=== PATIENT | male | born 1945 | race Caucasian/White ===

== ENCOUNTER 2018-11-16 09:54 | Outpatient (CLI) | payer MEDICARE, OTHER ==
--- NOTE | 2018-11-16 13:29 | XRAY Report ---
Reason: BILATERAL SHOULDER PAIN STIFFNESS Procedure Date: 11/16/2018 Accession Number: [id number] / [id number] Procedure: XR - Shoulder 3 View BILAT CPT Code: FULL RESULT: Bilateral Shoulder Radiography EXAM DATE: 11/16/2018 09:58 AM. CLINICAL HISTORY: Bilateral shoulder pain stiffness. COMPARISON: None. TECHNIQUE: 3 views each. FINDINGS: Right: Bones: Normal. No fracture or bone lesion. Joints: Moderate degenerative changes of the AC joint. The glenohumeral joint and acromioclavicular joint are normally located. Soft tissues: The visualized hemithorax is unremarkable. No soft tissue swelling. Left: Bones: Normal. No fracture or bone lesion. Joints: Moderate degenerative changes of the AC joint. AC joint and glenohumeral joint are normally located. Soft tissues: The visualized hemithorax is unremarkable. No soft tissue swelling. IMPRESSION: Bilateral AC joint degenerative changes. RADIA
== END 2018-11-16 09:55 | disposition home or self-care (01) ==
LOC: DI 09:54
PROVIDERS: ATTEND Family Medicine
DX: M19.012 Primary osteoarthritis, left shoulder (principal); M19.011 Primary osteoarthritis, right shoulder; M65.811 Other synovitis and tenosynovitis, right shoulder; M65.812 Other synovitis and tenosynovitis, left shoulder

== ENCOUNTER 2018-12-09 07:14 | Outpatient (CLI) | payer MEDICARE, OTHER ==
--- NOTE | 2018-12-11 08:32 | MRI Report ---
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 CLINICAL HISTORY: Worsening left shoulder pain. Bursitis. COMPARISON: SHOULDER 3 VIEW BILAT 11/16/2018 9:58 AM. TECHNIQUE: Multiplanar, multisequence T1-weighted and fluid-sensitive sequences of the shoulder without contrast. Other: None. FINDINGS: Acromioclavicular Region: The acromion is type II. Mild acromioclavicular joint osteoarthritis. Small AC joint fluid. Spurring 4 mm inferior aspect AC joint. The coracoacromial and coracoclavicular ligaments are intact. Small fluid collection subacromial subdeltoid bursa. Glenohumeral Region: No subluxation. No effusion or loose bodies. The articular cartilage is unremarkable. The glenohumeral ligaments and joint capsule are unremarkable. Bone Marrow: No fracture, marrow edema or bone lesions. Labrum: Anterior labrum tear. Diminutive posterior superior glenoid labrum with intermediate signal. Musculature/Rotator Cuff: Undersurface intermediate signal 1.5 cm in AP dimension and 1.3 cm in transverse dimension distal posterior infraspinatus tendon consistent with tendinosis. Severe thickening and intermediate signal of the supraspinatus tendon consistent with supraspinatus tendinitis. Possible small partial bursal surface linear tear 9 mm in length distal supraspinatus tendon (image 6 series 701). Biceps Tendon: The long head of the biceps tendon and biceps gordon are intact. Other: The subcutaneous tissues are unremarkable. IMPRESSION: 1. Anterior labrum tear. 2. Negative for rotator cuff tear. 3. Supraspinatus tendinitis. 4. Small fluid collection subacromial subdeltoid bursa. 5. Mild osteoarthritis acromioclavicular joint. 6. Infraspinatus tendinosis. RADIA
== END 2018-12-09 07:15 | disposition home or self-care (01) ==
LOC: DI 07:14
PROVIDERS: ATTEND Family Medicine
DX: M19.012 Primary osteoarthritis, left shoulder (principal); S43.492A Other sprain of left shoulder joint, initial encounter; M75.82 Other shoulder lesions, left shoulder

== ENCOUNTER 2019-01-15 15:02 | Emergency (ER) | payer MEDICARE, OTHER ==
--- NOTE | 2019-01-15 15:51 | ED Physician Documentation ---
PD HPI HEENT - Stated complaint Stated Complaint: NOSE BLEED - Chief complaint Chief Complaint: Heent - History obtained from History obtained from: Patient - History of Present Illness Timing - onset: Today Timing - duration: Hours Timing - details: Abrupt onset, Waxing and waning Location: Nose (intermittent right nosebleed since this morning. No injury. no URI.) Associated symptoms: No: Fever, Congestion, Swollen nodes Similar symptoms before: Has not had sx before Recently seen: Not recently seen Review of Systems Constitutional: denies: Fever Nose: reports: Epistaxis. denies: Rhinorrhea / runny nose, Congestion Throat: denies: Sore throat Respiratory: denies: Cough Neurologic: denies: Generalized weakness, Near syncope Endocrine: denies: Easy bruising / bleeding PD PAST MEDICAL HISTORY - Past Medical History Cardiovascular: Hypertension, High cholesterol Respiratory: None Endocrine/Autoimmune: Type 2 diabetes GI: Ulcers : None HEENT: Other Psych: None Musculoskeletal: Osteoarthritis Derm: Herpes zoster Other Past Medical History: bilat cataracts - Past Surgical History Past Surgical History: Yes General: Colonoscopy, EGD Ortho: Other HEENT: Tonsil/Adenoidectomy - Allergies Allergies/Adverse Reactions: Allergies Allergy/AdvReac Type Severity Reaction Status Date / Time No Known Drug Allergies Allergy Verified 01/15/19 15:07 - Social History Does the pt smoke?: No Smoking Status: Former smoker Does the pt drink ETOH?: No Does the pt have substance abuse?: No - Immunizations Immunizations are current?: Yes - POLST Patient has POLST: No PD ED PE NORMAL - Vitals Vital signs reviewed: Yes - General General: Alert and oriented X 3, Well developed/nourished - HEENT HEENT: Ears normal, Moist mucous membranes, Pharynx benign, Other (right anterior medial nasal wall with point of inflammation and minimal bleeding. Cotton ball for few minutes and bleeding stopped. Cautery was then done without problems. ) - Neck Neck: Supple, no meningeal sign, No adenopathy - Cardiac Cardiac: RRR, No murmur - Respiratory Respiratory: Clear bilaterally - Derm Derm: Normal color, Warm and dry Results - Vitals Vitals: Vital Signs - 24 hr 01/15/19 01/15/19 15:03 15:07 Temperature 36.6 C Heart Rate 92 81 Respiratory 18 14 Rate Blood Pressure 146/93 H 158/94 H O2 Saturation 95 91 L Oxygen O2 Source Room air Procedures - Epistaxis Site: Right Preparation: Lidocaine, Other (TXA) Treatment: Silver Nitrate, Packing inserted Other: Observed - no bleeding, Pt tolerated well PD MEDICAL DECISION MAKING - ED course Complexity details: considered differential, d/w patient Departure - Departure Disposition: 01 Home, Self Care Clinical Impression: Anterior epistaxis Condition: Stable Record reviewed to determine appropriate education?: Yes Instructions: ED Nosebleed Follow-Up: Ha Gaytan DO [Primary Care Provider] - Comments: Leave the foam packing in the nostril until tomorrow. At that point you can m oisten up the foam with just some tap water and then pull it out gently. If you do have any recurrent bleeding, pinch the nostril with the nose clamp that we gave you and leave it in place for 15 or 20 minutes and see if the bleeding stops. If it does not then return back here. I would expect recurrent bleeding once the packing is out tomorrow as that should be time enough for the cautery/sealant to have settled in and keep it from bleeding again. Discharge Date/Time: 01/15/19 16:39
[2019-01-15] MEDS ORDERED: TRANEXAMIC ACID 1,000 MG/10 ML VIAL NAS STA (16:10)
[2019-01-15 16:30] VITALS: BP 158/94
== END 2019-01-15 16:39 | disposition home or self-care (01) ==
LOC: ED 15:02
DX: R04.0 Epistaxis (principal); I10 Essential (primary) hypertension; E11.9 Type 2 diabetes mellitus without complications; Z87.891 Personal history of nicotine dependence
CPT/HCPCS: 30901; 99282; 99283

== ENCOUNTER 2019-06-23 19:46 | Emergency (ER) | payer MEDICARE, OTHER ==
--- NOTE | 2019-06-23 20:08 | ED Physician Documentation ---
PD HPI HEENT - Stated complaint Stated Complaint: NOSE BLEED - Chief complaint Chief Complaint: Heent - History obtained from History obtained from: Patient - History of Present Illness Timing - onset: Enter time (18:00), Today Timing - details: Abrupt onset Pain level max: 0 Pain level now: 0 Location: Nose Improves: Nothing Similar symptoms before: Other (right epistaxis T+R from this ED 5 months ago) Recently seen: Not recently seen - Additional information Additional information: c/o spontaneous right nare epistaxis x 2.5 hours. does not take blood-thinning medication. Review of Systems Nose: reports: Epistaxis. denies: Rhinorrhea / runny nose, Congestion, Sinus pressure / pain Endocrine: denies: Easy bruising / bleeding PD PAST MEDICAL HISTORY - Past Medical History Cardiovascular: Hypertension, High cholesterol Respiratory: None Endocrine/Autoimmune: Type 2 diabetes GI: Ulcers : None HEENT: Other Psych: None Musculoskeletal: Osteoarthritis Derm: Herpes zoster - Past Surgical History Past Surgical History: Yes General: Colonoscopy, EGD Ortho: Other HEENT: Tonsil/Adenoidectomy - Allergies Allergies/Adverse Reactions: Allergies Allergy/AdvReac Type Severity Reaction Status Date / Time No Known Drug Allergies Allergy Verified 06/23/19 19:52 - Social History Does the pt smoke?: No Smoking Status: Never smoker Does the pt drink ETOH?: No Does the pt have substance abuse?: No - Immunizations Immunizations are current?: Yes - POLST Patient has POLST: No PD ED PE NORMAL - Vitals Vital signs reviewed: Yes - General General: Alert and oriented X 3, No acute distress, Well developed/nourished - HEENT HEENT: Moist mucous membranes, Pharynx benign PD ED PE EXPANDED - HEENT HEENT: Right nares epsitaxis Results - Vitals Vitals: Vital Signs - 24 hr 06/23/19 06/23/19 19:52 21:24 Temperature 36.3 C L Heart Rate 83 87 Respiratory 18 18 Rate Blood Pressure 170/98 H 166/106 H O2 Saturation 93 93 Oxygen O2 Source Room air Procedures - Epistaxis Site: Right Preparation: Clots removed (solitary small clot), Afrin, Lidocaine Treatment: Silver Nitrate, Other (upon removing the cotton ball (with lidocaine and afrin), I did not see any active bleeding nor potential source of bleeding, but eventually I was able to locate a solitary raised vessel far anterior (less than 0.5 cm from rim of nare) right nare; upon application of silver nitrate, this began bleeding, further raising suspicion that this has been the bleeding source. I reapplied lidocaine and then two more applications of silver nitrate with good hemostasis achieved) Other: Observed - no bleeding, Pt tolerated well PD MEDICAL DECISION MAKING - ED course Complexity details: reviewed old records, re-evaluated patient, considered differential, d/w patient Departure - Departure Disposition: 01 Home, Self Care Clinical Impression: Epistaxis Condition: Good Instructions: ED Nosebleed Follow-Up: Ha Gaytan DO [Primary Care Provider] - Discharge Date/Time: 06/23/19 21:26
[2019-06-23] MEDS ORDERED: LIDOCAINE VISCOUS 2% 15 ML UDC MM STA (20:18)
[2019-06-23] MEDS ORDERED: OXYMETAZOLINE HCL 100 SPRAYS BOTTLE NAS STA (20:18)
[2019-06-23 21:26] VITALS: BP 166/106
== END 2019-06-23 21:26 | disposition home or self-care (01) ==
LOC: ED 19:46
DX: R04.0 Epistaxis (principal); I10 Essential (primary) hypertension; E11.9 Type 2 diabetes mellitus without complications
CPT/HCPCS: 30901; 99282; A9270

== ENCOUNTER 2021-01-23 16:11 | Outpatient (CLI) | payer MEDICARE, OTHER | END 2021-01-23 16:12 | disposition critical access hospital (66) | LOC: EMS 16:11 | DX: L76.22 Postprocedural hemorrhage of skin and subcutaneous tissue following other procedure (principal) | CPT/HCPCS: A0425; A0429 ==

== ENCOUNTER 2021-01-23 16:25 | Emergency (ER) | payer MEDICARE, OTHER ==
[2021-01-23 17:18] LABS: BASOPHILS # (AUTO) 0.1 10^3/uL (0.0-0.1); BASOPHILS % (AUTO) 0.8 %; EOSINOPHILS # (AUTO) 0.4 10^3/uL (0.0-0.7); EOSINOPHILS % (AUTO) 3.3 %; HCT - HEMATOCRIT 29.4 % (42.0-52.0); HGB - HEMOGLOBIN 9.7 g/dL (14.0-18.0); LYMPHOCYTES # (AUTO) 1.3 10^3/uL (1.5-3.5); LYMPHOCYTES % (AUTO) 12.4 %; MEAN CORPUSCULAR HEMOGLOBIN 29.9 pg (27.0-31.0); MEAN CORPUSCULAR VOLUME 90.7 fL (80.0-94.0); MEAN PLATELET VOLUME 9.4 fL (7.4-11.4); MONOCYTES % (AUTO) 9.4 %; NEUTROPHILS # (AUTO) 7.8 10^3/uL (1.5-6.6); NEUTROPHILS % (AUTO) 72.9 %; PLT - PLATELET COUNT 282 10^3/uL (130-450); RED BLOOD COUNT 3.24 10^6/uL (4.70-6.10); RED CELL DISTRIBUTION WIDTH 14.4 % (12.0-15.0); WHITE BLOOD COUNT 10.6 x10^3/uL (4.8-10.8)
[2021-01-23 17:27] LABS: ALBUMIN 3.1 g/dL (3.2-5.5); BILIRUBIN,TOTAL 2.1 mg/dL (0.2-1.0); CALCIUM 7.8 mg/dL (8.5-10.3); POTASSIUM 3.8 mmol/L (3.5-5.0); TOTAL PROTEIN 6.2 g/dL (6.7-8.2)
[2021-01-23] MEDS ORDERED: IOVERSOL 320 100 ML VIAL IVP ONE ×2 (17:42→17:59)
--- NOTE | 2021-01-23 17:42 | ED Physician Documentation ---
History of Present Illness - Stated complaint Stated Complaint: POST OP BLEEDING - Chief complaint Chief Complaint: Abd Pain - Additonal information Additional information: 75-year-old male presents the emergency department for evaluation of postoperative bleeding. He underwent an extensive and complex hernia repair at [facility] on 13 January. He had been wearing his abdominal binder as ordered. He does report that after the hernia repair he did have extensive bruising on his abdomen. This afternoon when he woke up from a nap in his chair he noted that his Close were stained with blood and he was bleeding from the lower portion of his incision. He does report that this a.m. he did have pink-tinged urine. He denies melena or hematochezia. He has had no vomiting. No fevers. No dysuria. Past medical history is most significant for hypertension and diabetes for which she is compliant with his insulin regimen. Review of Systems Constitutional: denies: Fever, Chills Eyes: reports: Reviewed and negative Ears: reports: Reviewed and negative Nose: reports: Reviewed and negative Throat: reports: Reviewed and negative Cardiac: reports: Reviewed and negative Respiratory: reports: Reviewed and negative GI: reports: Abdominal Pain, Reviewed and negative. denies: Nausea, Vomiting, Diarrhea, Hematemesis, Bloody / black stool : reports: Hematuria, Reviewed and negative. denies: Dysuria, Frequency Skin: reports: Other (Extensive bruising on the abdomen.). denies: Rash, Lesions Musculoskeletal: denies: Neck pain, Back pain PD PAST MEDICAL HISTORY - Past Medical History Cardiovascular: Hypertension, High cholesterol Respiratory: None Endocrine/Autoimmune: Type 2 diabetes GI: Ulcers : None HEENT: Other Psych: None Musculoskeletal: Osteoarthritis Derm: Herpes zoster - Past Surgical History Past Surgical History: Yes General: Colonoscopy, EGD Ortho: Other HEENT: Tonsil/Adenoidectomy - Present Medications Home Medications: Ambulatory Orders Medication Instructions Recorded Confirmed Dulaglutide [Trulicity] 0.75 mg SQ Q7D 10/13/20 10/13/20 Insulin Aspart [NovoLOG] 14 unit SUBQ TIDWM 10/13/20 10/13/20 Insulin Detemir [Levemir Flextouch] 40 units SUBQ BID 10/13/20 10/13/20 Losartan [Cozaar] 50 mg PO DAILY 10/13/20 10/13/20 Multivitamin 1 each PO 10/13/20 Rosuvastatin Calcium [Crestor] 40 mg PO QDBREAKFAST 10/13/20 10/13/20 - Allergies Allergies/Adverse Reactions: Allergies Allergy/AdvReac Type Severity Reaction Status Date / Time No Known Drug Allergies Allergy Verified 01/23/21 16:35 - Social History Does the pt smoke?: No Smoking Status: Never smoker Does the pt drink ETOH?: No Does the pt have substance abuse?: No - Immunizations Immunizations are current?: Yes - POLST Patient has POLST: No PD ED PE EXPANDED - General General: Alert, No acute distress - Cardiac Cardiac: Regular Rate, Radial strong equal, Pedal strong equal, Cap refill < 2 sec - Abdomen Abdomen: Normal Bowel sounds, Tender to palpation, Surgical scars (Long midline Vertical incision is well approximated. The lower portion above the symphysis pubis however has blood draining from it. It begins to bleed more freely when the patient sits upright.), Other (Significant bruising on the entirety of the abdomen in various stages of healing from light yellow to dark purple.) - Neuro Neuro: Alert and Oriented X 3, CNII-XII intact Results - Vitals Vitals: Vital Signs - 24 hr 01/23/21 01/23/21 01/23/21 16:25 18:30 21:00 Temperature 37.4 C Heart Rate 84 79 79 Respiratory 20 16 94 H Rate Blood Pressure 156/62 H 139/73 H 131/67 H O2 Saturation 96 95 20 L Oxygen O2 Source Room air - Labs Labs: Laboratory Tests 01/23/21 01/23/21 01/23/21 17:10 17:10 17:10 WBC 10.6 RBC 3.24 L Hgb 9.7 L Hct 29.4 L MCV 90.7 MCH 29.9 MCHC 33.0 RDW 14.4 Plt Count 282 MPV 9.4 Neut # (Auto) 7.8 H Lymph # (Auto) 1.3 L Woodruff # (Auto) 1.0 Eos # (Auto) 0.4 Baso # (Auto) 0.1 Absolute Nucleated RBC 0.00 Nucleated RBC % 0.0 PT INR Sodium 134 L Potassium 3.8 Chloride 100 L Carbon Dioxide 26 Anion Gap 8.0 BUN 14 Creatinine 1.0 Estimated GFR (MDRD) 73 L Glucose 197 H Lactic Acid 1.0 Calcium 7.8 L Total Bilirubin 2.1 H AST 26 ALT 36 Alkaline Phosphatase 58 Total Protein 6.2 L Albumin 3.1 L Globulin 3.1 Albumin/Globulin Ratio 1.0 Lipase 38 01/23/21 17:35 WBC RBC Hgb Hct MCV MCH MCHC RDW Plt Count MPV Neut # (Auto) Lymph # (Auto) Woodruff # (Auto) Eos # (Auto) Baso # (Auto) Absolute Nucleated RBC Nucleated RBC % PT 16.6 H INR 1.5 H Sodium Potassium Chloride Carbon Dioxide Anion Gap BUN Creatinine Estimated GFR (MDRD) Glucose Lactic Acid Calcium Total Bilirubin AST ALT Alkaline Phosphatase Total Protein Albumin Globulin Albumin/Globulin Ratio Lipase - Rads (name of study) CT abd Radiology: Final report received (Large lobulated slightly hyper attenuated heterogeneous subcutaneous collection within the ventral abdominal wall measuring 22 cm x 6 cm x 17 cm consistent with a hematoma. Aneurysmal dilation of the infrarenal abdominal aorta 3.4 cm. No intraperitoneal free fluid. ) PD MEDICAL DECISION MAKING - ED course Complexity details: reviewed results, re-evaluated patient, considered differential, d/w patient, d/w family ED course: This is a 75-year-old male that presents the emergency department for evaluation of bleeding from the incision after his recent extensive hernia repair. There is significant amount of bruising within the abdomen but today the patient noted that he began to have bleeding from the lower portion of the incision. A CT scan does show a very large hematoma measuring 22 x 17 cm. This is within the subcutaneous tissue of the ventral abdominal wall. He does have active dark brown bleeding from the lower portion of the incision when he sits upright. 2049: I have spoken with Dr. Elliott the surgeon who ss on-call and also performed his operation at [facility] on the he does agree that the patient should be evaluated for further treatment of his hematoma and possible drainage. He does agree to accept the patient in transfer to [facility]. Appropriate COBRA paperwork completed. Patient is hemodynamically stable and has required no IV pain medications nor is he tachycardic will be sent via BLS. Departure - Departure Disposition: 02 Transfer Acute Care Hosp Clinical Impression: Abdominal wall hematoma Qualifiers: Encounter type: initial encounter Qualified Code(s): S30.1XXA - Contusion of abdominal wall, initial encounter
[2021-01-23 17:50] LABS: INR 1.5 (0.8-1.2); PT - PROTHROMBIN TIME 16.6 secs (9.9-12.6)
--- NOTE | 2021-01-23 18:49 | CT Report ---
PROCEDURE: Abdomen/Pelvis W INDICATIONS: recent surgery hernia repair; bleeding CONTRAST: IV CONTRAST: Optiray 320 ml: 100 PO CONTRAST: *NO PO CONTRAST TECHNIQUE: After the administration of intravenous contrast, 5 mm thick sections acquired from the diaphragms to the symphysis. 5 mm thick coronal and sagittal reformats were acquired. For radiation dose reducti on, the following was used: automated exposure control, adjustment of mA and/or kV according to shanique ent size. COMPARISON: None. FINDINGS: Image quality: Excellent. ABDOMEN: Lung bases: There is dependent atelectasis and scarring the lung bases. Heart size is normal. Solid organs: Liver and spleen are normal in size and enhancement. Gallbladder is surgically absent . Biliary system is non dilated. Pancreas enhances normally. No adrenal nodules. Kidneys demonstr ate no hydronephrosis. There is a right renal cortical cyst noted posteriorly. Peritoneum and bowel: Bowel loops demonstrate normal wall thickness and caliber. No intraperitoneal free fluid or air. Nodes and vessels: No retroperitoneal or mesenteric adenopathy by size criteria. There is an infrare nal saccular abdominal aortic aneurysm, with the aorta measuring up to 3.4 cm in anteroposterior dime nsion. The common, external, and internal iliac arteries are normal in caliber. There is scattered ca lcified atherosclerotic plaque. Miscellaneous: There is a large lobulated slightly hyperattenuating heterogeneous subcutaneous colle ction within the ventral abdominal wall measuring approximately 21.7 x 5.8 x 17.1 cm consistent with a hematoma. No definite evidence of active arterial extravasation. There is an associated ventral abd ominal surgical incision site. Small foci of subcutaneous cutaneous gas are also noted on the right a spect of the collection. There is a small fat-containing left paracentral ventral abdominal hernia po sterior to inferior aspect of the hematoma collection. PELVIS: Genitourinary: Bladder wall thickness is normal. Miscellaneous: No inguinal hernias or adenopathy. Bones: No suspicious bony lesions. No vertebral body compression fractures. IMPRESSION: 1. Large lobulated subcutaneous hyperdense heterogeneous collection consistent with a hematoma demons trated in the ventral abdominal wall. No definite evidence of active arterial extravasation identifie d. 2. No intraperitoneal free fluid. 3. Aneurysmal dilatation of the infrarenal abdominal aorta. Reviewed by: Camilo Taylor MD on 01/23/2021 6:47 PM PDT Approved by: Camilo Taylor MD on 01/23/2021 6:47 PM PDT Station ID: [id number]
[2021-01-23 21:01] VITALS: BP 131/67
[2021-01-23] MEDS ORDERED: SODIUM CHLORIDE 0.9% 1,000 ML IV STA (21:04)
== END 2021-01-23 21:48 | disposition short-term general hospital (02) ==
LOC: EDUNIT# → ED 16:25 → SUPCPDRO 16:25 → ED 21:48
DX: L76.32 Postprocedural hematoma of skin and subcutaneous tissue following other procedure (principal); I10 Essential (primary) hypertension; E11.9 Type 2 diabetes mellitus without complications; Z79.4 Long term (current) use of insulin
CPT/HCPCS: 36415; 74177; 80053; 83605; 83690; 85025; 85610; 96360; 99283; 99285; Q9967

== ENCOUNTER 2021-01-23 21:50 | Outpatient (CLI) | payer MEDICARE, OTHER | END 2021-01-23 21:51 | disposition short-term general hospital (02) | LOC: EMS 21:50 | PROVIDERS: ATTEND Registered Nurse | DX: L76.32 Postprocedural hematoma of skin and subcutaneous tissue following other procedure (principal); E11.9 Type 2 diabetes mellitus without complications; I10 Essential (primary) hypertension | CPT/HCPCS: A0425; A0428 ==

== ENCOUNTER 2022-05-23 07:36 | Outpatient (CLI) | payer MEDICARE, OTHER | END 2022-05-23 07:37 | disposition critical access hospital (66) | LOC: EMS 07:36 | DX: R42 Dizziness and giddiness (principal); R03.0 Elevated blood-pressure reading, without diagnosis of hypertension | CPT/HCPCS: A0425; A0429 ==

== ENCOUNTER 2022-05-23 07:47 | Emergency (ER) | payer MEDICARE, OTHER ==
--- NOTE | 2022-05-23 07:58 | ED Physician Documentation ---
PD HPI HEENT - Stated complaint Stated Complaint: VERTIGO/NEAR SYNCOPE - History obtained from History obtained from: Patient PD PAST MEDICAL HISTORY - Past Medical History Cardiovascular: Hypertension, High cholesterol Respiratory: None Endocrine/Autoimmune: Type 2 diabetes GI: Ulcers : None HEENT: Other Psych: None Musculoskeletal: Osteoarthritis Derm: Herpes zoster - Past Surgical History Past Surgical History: Yes General: Colonoscopy, EGD Ortho: Other HEENT: Tonsil/Adenoidectomy - Present Medications Home Medications: Ambulatory Orders Medication Instructions Recorded Confirmed Dulaglutide [Trulicity] 0.75 mg SQ Q7D 10/13/20 01/23/21 Insulin Aspart [NovoLOG] 14 unit SUBQ TIDWM 10/13/20 01/23/21 Insulin Detemir [Levemir Flextouch] 40 units SUBQ BID 10/13/20 01/23/21 Losartan [Cozaar] 50 mg PO DAILY 10/13/20 01/23/21 Multivitamin 1 each PO DAILY 10/13/20 01/23/21 Rosuvastatin Calcium [Crestor] 40 mg PO QDBREAKFAST 10/13/20 01/23/21 - Allergies Allergies/Adverse Reactions: Allergies Allergy/AdvReac Type Severity Reaction Status Date / Time No Known Drug Allergies Allergy Verified 01/23/21 16:35 - Social History Does the pt smoke?: No Smoking Status: Never smoker Does the pt drink ETOH?: No Does the pt have substance abuse?: No - Immunizations Immunizations are current?: Yes - POLST Patient has POLST: No Results - Vitals Vitals: Oxygen O2 Source Room air
[2022-05-23] MEDS ORDERED: ENALAPRILAT 1.25 MG/ML VIAL IVP STA (08:40)
[2022-05-23] MEDS ORDERED: NITROGLYCERIN SL 0.4 MG TABLET SL STA (08:41)
--- NOTE | 2022-05-23 08:42 | ED Physician Documentation ---
PD HPI SYNCOPE - Stated complaint Stated Complaint: VERTIGO/NEAR SYNCOPE - Chief complaint Chief Complaint: Neuro - History obtained from History obtained from: Patient - History of Present Illness Witnessed: Unwitnessed Timing - onset: How many hours ago (1) Duration: Minutes Preceding symptoms: Light headed (He felt lightheaded and off balance and near syncope when got up from bed. He felt better sitting down. No change with head movement. Denies vertigo. He was concerned of low blood pressure so took it but was at 200s. Continue to with lightheadedness when standing up. Called EMS. No headache.), Generalized weakness. No: Headache, Chest pain, Dyspnea Associated symptoms: Nausea / vomiting, Other (no vertigo nor symptoms with head movement. He took BP and it was very elevated.). No: Headache, Chest pain, Palpitations, Dyspnea, Abdominal pain Contributing factors: Just stood up. No: Recent med change, Decreased PO intake, Noxious stimulae Injury occurred: No: Fell, Head injury, Neck injury Similar symptoms before: No diagnosis (milder similar in the past. Today was more prominent and persisted with standing up again. No symptoms with head movement/head position.) Recently seen: Not recently seen Review of Systems Constitutional: denies: Fever Eyes: denies: Loss of vision, Decreased vision Nose: denies: Rhinorrhea / runny nose, Congestion Throat: denies: Sore throat Respiratory: denies: Cough Musculoskeletal: denies: Neck pain, Back pain Neurologic: reports: Near syncope. denies: Focal weakness, Numbness, Difficulty speaking, Altered mental status, Headache PD PAST MEDICAL HISTORY - Past Medical History Cardiovascular: Hypertension (but has not been on oral med for year or more. ), High cholesterol Respiratory: None Endocrine/Autoimmune: Type 2 diabetes GI: Ulcers : None HEENT: Other Psych: None Musculoskeletal: Osteoarthritis Derm: Herpes zoster - Past Surgical History Past Surgical History: Yes General: Colonoscopy, EGD Ortho: Other HEENT: Tonsil/Adenoidectomy - Present Medications Home Medications: Ambulatory Orders Medication Instructions Recorded Confirmed Dulaglutide [Trulicity] 0.75 mg SQ Q7D 10/13/20 01/23/21 Insulin Aspart [NovoLOG] 14 unit SUBQ TIDWM 10/13/20 01/23/21 Insulin Detemir [Levemir Flextouch] 40 units SUBQ BID 10/13/20 01/23/21 Losartan [Cozaar] 50 mg PO DAILY 10/13/20 01/23/21 Multivitamin 1 each PO DAILY 10/13/20 01/23/21 Rosuvastatin Calcium [Crestor] 40 mg PO QDBREAKFAST 10/13/20 01/23/21 Losartan [Cozaar] 50 mg PO DAILY 30 Days #30 tablet 05/23/22 - Allergies Allergies/Adverse Reactions: Allergies Allergy/AdvReac Type Severity Reaction Status Date / Time No Known Drug Allergies Allergy Verified 01/23/21 16:35 - Social History Does the pt smoke?: No Smoking Status: Never smoker Does the pt drink ETOH?: No Does the pt have substance abuse?: No - Immunizations Immunizations are current?: Yes - POLST Patient has POLST: No PD ED PE NORMAL - Vitals Vital signs reviewed: Yes - General General: Alert and oriented X 3, No acute distress, Well developed/nourished - HEENT HEENT: PERRL, EOMI (no nystagmus), Moist mucous membranes, Pharynx benign - Neck Neck: Supple, no meningeal sign, No adenopathy - Cardiac Cardiac: RRR, No murmur - Respiratory Respiratory: Clear bilaterally - Abdomen Abdomen: Soft, Non tender - Derm Derm: Normal color, Warm and dry - Extremities Extremities: Normal ROM s pain, No edema, No calf tenderness / cord - Neuro Neuro: Alert and oriented X 3, 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, No motor deficit, No sensory def icit, Normal speech, Other Eye Opening: Spontaneous Motor: Obeys Commands Verbal: Oriented GCS Score: 15 Results - Vitals Vitals: Vital Signs - 24 hr 05/23/22 05/23/22 05/23/22 07:56 09:59 10:23 Temperature 37.2 C Heart Rate 75 72 Heart Rate [ 73 Sitting] Heart Rate [ 80 Standing] Heart Rate [ 70 Supine] Respiratory 11 L 16 Rate Blood Pressure 229/129 H 164/93 H Blood Pressure 154/95 H [Sitting] Blood Pressure 165/98 H [Standing] Blood Pressure 162/94 H [Supine] O2 Saturation 99 95 Oxygen O2 Source Room air - EKG (time done) 07:45 Rate: Rate (enter#) (73) Rhythm: NSR Intervals: RBBB Ischemia: Normal ST segments, Non specific changes. No: ST elevation c/w ischemia Compare to prior EKG: Old EKG unavailable (he is not aware of recent ECG. no known RBBB per se. ) - Labs Labs: Laboratory Tests 05/23/22 05/23/22 05/23/22 08:50 08:50 08:50 WBC 9.2 RBC 5.15 Hgb 15.1 Hct 45.7 MCV 88.7 MCH 29.3 MCHC 33.0 RDW 14.2 Plt Count 189 MPV 10.0 Neut # (Auto) 6.3 Lymph # (Auto) 1.6 [place] # (Auto) 0.9 Eos # (Auto) 0.3 Baso # (Auto) 0.1 Absolute Nucleated RBC 0.00 Nucleated RBC % 0.0 Sodium 140 Potassium 3.9 Chloride 108 Carbon Dioxide 24 Anion Gap 8.0 BUN 11 Creatinine 0.8 Estimated GFR (MDRD) 94 Glucose 136 H Calcium 9.0 Magnesium 1.9 Total Bilirubin 1.0 AST 19 ALT 15 Alkaline Phosphatase 60 Troponin I High Sens 15.7 B-Natriuretic Peptide Total Protein 6.8 Albumin 3.5 Globulin 3.3 Albumin/Globulin Ratio 1.1 Lipase 34 05/23/22 08:50 WBC RBC Hgb Hct MCV MCH MCHC RDW Plt Count MPV Neut # (Auto) Lymph # (Auto) [place] # (Auto) Eos # (Auto) Baso # (Auto) Absolute Nucleated RBC Nucleated RBC % Sodium Potassium Chloride Carbon Dioxide Anion Gap BUN Creatinine Estimated GFR (MDRD) Glucose Calcium Magnesium Total Bilirubin AST ALT Alkaline Phosphatase Troponin I High Sens B-Natriuretic Peptide 99 Total Protein Albumin Globulin Albumin/Globulin Ratio Lipase PD MEDICAL DECISION MAKING - ED course Complexity details: reviewed results (no acute labs abnormal. Symptoms were ostural lightheaded/near syncope. Did not have focal weakness, headache, vertigo. ), re-evaluated patient (he feels better with BP down (treated with NTG x 1 and enalaprit). ), considered differential, d/w patient, d/w family (spouse) Departure - Departure Disposition: 01 Home, Self Care Clinical Impression: Postural lightheadedness, Elevated blood pressure reading Condition: Stable Record reviewed to determine appropriate education?: Yes Follow-Up: Ha Gaytan DO [Primary Care Provider] - Prescriptions: Losartan [Cozaar] 50 mg PO DAILY 30 Days #30 tablet Comments: Your blood count and kidney function electrolytes are good. Your troponin is normal without any signs of heart failure or heart attack. Your EKG is Fairly normal with an electrical abnormality called a right bundle branch block. This may have been present for a while. See if Dr. Gaytan is aware of it on any prior EKGs. I do not have any comparisons available in my system here.. Your blood pressure was quite elevated and actually did not have a drop with standing so I do not think a low blood pressure or drop in blood pressure was causing your symptoms. You may be having symptoms related to the very elevated blood pressure. I would anticipate this improving through the day. Return or follow-up with your primary if persistent symptoms and particularly if worsening. Otherwise we will start you on a blood pressure medicine. This looks like when you had been prescribed in the past. Losartan 50 mg daily. See how your blood pressure does on this over the next week or so. Follow-up with Dr. Gaytan. They may to need to adjust at higher if your blood pressure still high. I sent your prescription to [facility] pharmacy. Return if other symptoms develop along with this. Discharge Date/Time: 05/23/22 11:07
[2022-05-23 08:57] LABS: BASOPHILS # (AUTO) 0.1 10^3/uL (0.0-0.1); EOSINOPHILS # (AUTO) 0.3 10^3/uL (0.0-0.7); EOSINOPHILS % (AUTO) 3.4 %; HCT - HEMATOCRIT 45.7 % (42.0-52.0); HGB - HEMOGLOBIN 15.1 g/dL (14.0-18.0); LYMPHOCYTES # (AUTO) 1.6 10^3/uL (1.5-3.5); LYMPHOCYTES % (AUTO) 16.8 %; MEAN CORPUSCULAR HEMOGLOBIN 29.3 pg (27.0-31.0); MEAN CORPUSCULAR VOLUME 88.7 fL (80.0-94.0); MONOCYTES # (AUTO) 0.9 10^3/uL (0.0-1.0); MONOCYTES % (AUTO) 10.2 %; NEUTROPHILS # (AUTO) 6.3 10^3/uL (1.5-6.6); NEUTROPHILS % (AUTO) 68.1 %; PLT - PLATELET COUNT 189 10^3/uL (130-450); RED BLOOD COUNT 5.15 10^6/uL (4.70-6.10); RED CELL DISTRIBUTION WIDTH 14.2 % (12.0-15.0); WHITE BLOOD COUNT 9.2 x10^3/uL (4.8-10.8)
[2022-05-23 09:12] LABS: ALBUMIN 3.5 g/dL (3.2-5.5); ALBUMIN/GLOBULIN RATIO 1.1 (1.0-2.2); CREATININE 0.8 mg/dL (0.6-1.2); MAGNESIUM 1.9 mg/dL (1.7-2.8); POTASSIUM 3.9 mmol/L (3.5-5.0); TOTAL PROTEIN 6.8 g/dL (6.7-8.2)
[2022-05-23 10:24] VITALS: BP 162/94
== END 2022-05-23 11:07 | disposition home or self-care (01) ==
LOC: EDBD → EDUNIT# → ED 07:47
DX: R42 Dizziness and giddiness (principal); I10 Essential (primary) hypertension
CPT/HCPCS: 36415; 80053; 83690; 83735; 83880; 84484; 85025; 93005; 96374; 99283; 99284; A9270

== ENCOUNTER 2022-10-07 13:23 | Outpatient (CLI) | payer OTHER, MEDICARE | END 2022-10-07 13:24 | disposition critical access hospital (66) | LOC: EMS 13:23 | DX: M54.2 Cervicalgia (principal); M54.6 Pain in thoracic spine; R07.89 Other chest pain; V43.53XA Car driver injured in collision with pick-up truck in traffic accident, initial encounter; Y92.413 State road as the place of occurrence of the external cause | CPT/HCPCS: A0425; A0429 ==

== ENCOUNTER 2022-10-07 13:29 | Emergency (ER) | payer OTHER, MEDICARE ==
[2022-10-07] MEDS ORDERED: ONDANSETRON 4 MG/2 ML VIAL IVP STA (13:44)
[2022-10-07] MEDS ORDERED: MORPHINE 10 MG/ML VIAL IVP STA (13:44)
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
[2022-10-07 13:51] LABS: BASOPHILS # (AUTO) 0.1 10^3/uL (0.0-0.1); BASOPHILS % (AUTO) 0.8 %; EOSINOPHILS # (AUTO) 0.3 10^3/uL (0.0-0.7); EOSINOPHILS % (AUTO) 2.7 %; HCT - HEMATOCRIT 48.8 % (42.0-52.0); HGB - HEMOGLOBIN 16.3 g/dL (14.0-18.0); LYMPHOCYTES # (AUTO) 3.1 10^3/uL (1.5-3.5); LYMPHOCYTES % (AUTO) 27.9 %; MEAN CORPUSCULAR HEMOGLOBIN 29.7 pg (27.0-31.0); MEAN CORPUSCULAR HGB CONC 33.4 g/dL (32.0-36.0); MEAN CORPUSCULAR VOLUME 89.1 fL (80.0-94.0); MEAN PLATELET VOLUME 10.4 fL (7.4-11.4); MONOCYTES # (AUTO) 1.1 10^3/uL (0.0-1.0); MONOCYTES % (AUTO) 10.1 %; NEUTROPHILS # (AUTO) 6.3 10^3/uL (1.5-6.6); NEUTROPHILS % (AUTO) 57.4 %; PLT - PLATELET COUNT 178 10^3/uL (130-450); RED BLOOD COUNT 5.48 10^6/uL (4.70-6.10); RED CELL DISTRIBUTION WIDTH 14.2 % (12.0-15.0)
[2022-10-07] MEDS ORDERED: iohexoL-300 100 ML VIAL ONE (13:54)
[2022-10-07 13:58] LABS: INR 1.1 (0.8-1.2); PT - PROTHROMBIN TIME 12.7 secs (9.9-12.6)
[2022-10-07 14:05] LABS: ALBUMIN/GLOBULIN RATIO 1.3 (1.0-2.2); ALKALINE PHOSPHATASE 60 IU/L (42-121); ALT ALANINE AMINOTRANSFERASE 22 IU/L (10-60); AST ASPARTATE AMINOTRANSFERASE 26 IU/L (10-42); BILIRUBIN,TOTAL 1.2 mg/dL (0.2-1.0); BUN - BLOOD UREA NITROGEN 12 mg/dL (6-20); CALCIUM 9.1 mg/dL (8.5-10.3); CARBON DIOXIDE - CO2 25 mmol/L (21-32); CHLORIDE 105 mmol/L (101-111); CREATININE 0.8 mg/dL (0.6-1.2); ETOH - ETHANOL < 5.0 mg/dL; GFR - MDRD 94 (>89); GLUCOSE 275 mg/dL (70-100); LIPASE 37 U/L (22-51); POTASSIUM 3.7 mmol/L (3.5-5.0); SODIUM 138 mmol/L (135-145); TOTAL PROTEIN 7.1 g/dL (6.7-8.2)
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
[2022-10-07] MEDS ORDERED: METOPROLOL 5 MG/5 ML VIAL IVP STA (16:48)
--- NOTE | 2022-10-07 17:07 | XRAY Report ---
PROCEDURE: Hand 3 View RT INDICATIONS: pain TECHNIQUE: 3 views of the hand(s) acquired. COMPARISON: None FINDINGS: Bones: No fractures or dislocations. Osteoarthritic changes are noted throughout right hand and wri st joints most notably throughout interphalangeal joints. No suspicious bony lesions. Soft tissues: No suspicious soft tissue calcifications. IMPRESSION: Osteoarthritic changes in right hand and wrist joints. No acute fracture or dislocation. No gross sof t tissue abnormalities. Reviewed by: Twan Houser MD on 10/07/2022 5:06 PM PDT Approved by: Twan Houser MD on 10/07/2022 5:06 PM PDT Station ID: [id number]
[2022-10-07 18:08] VITALS: BP 188/111
[2022-10-08] MEDS ORDERED: iohexoL-300 100 ML VIAL IVP ONE (10:12)
== END 2022-10-07 19:44 | disposition short-term general hospital (02) ==
LOC: EDUNIT# → ED 13:29
DX: S22.41XA Multiple fractures of ribs, right side, initial encounter for closed fracture (principal); S42.012A Anterior displaced fracture of sternal end of left clavicle, initial encounter for closed fracture; V89.2XXA Person injured in unspecified motor-vehicle accident, traffic, initial encounter; Y93.89 Activity, other specified; Y92.413 State road as the place of occurrence of the external cause; I10 Essential (primary) hypertension; R91.8 Other nonspecific abnormal finding of lung field; Z20.822 Contact with and (suspected) exposure to COVID-19
CPT/HCPCS: 36415; 70450; 71045; 71260; 72125; 73000; 73130; 74177; 80053; 80320; 83690; 85025; 85610; 86850; 86900; 86901; 87635; 93005; 96374; 96375; 99285; Q9967

== ENCOUNTER 2023-02-01 15:32 | Outpatient (CLI) | payer MEDICARE, OTHER | END 2023-02-01 23:59 | disposition critical access hospital (66) | LOC: EMS 15:32 | DX: R07.81 Pleurodynia (principal); W18.30XA Fall on same level, unspecified, initial encounter | CPT/HCPCS: A0425; A0429 ==

== ENCOUNTER 2023-02-01 16:09 | Inpatient (IN) | payer MEDICARE, OTHER ==
[2023-02-01] MEDS ORDERED: HYDROmorphone 1 MG/ML CARPUJECT IM STA (16:33)
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
--- NOTE | 2023-02-01 16:48 | XRAY Report ---
PROCEDURE: Chest 1 View X-Ray INDICATIONS: chest pain TECHNIQUE: One view of the chest was acquired. COMPARISON: 10/07/2022. FINDINGS: Surgical changes and devices: None. Lungs and pleura: No pleural effusions or pneumothorax. Lungs are clear. Mediastinum: Mediastinal contours appear normal. Heart size is normal. Bones and chest wall: No suspicious bony lesions. Overlying soft tissues appear unremarkable. IMPRESSION: No acute cardiopulmonary process. Reviewed by: Twan Houser MD on 02/01/2023 4:47 PM PDT Approved by: Twan Houser MD on 02/01/2023 4:47 PM PDT Station ID: [id number]
--- NOTE | 2023-02-01 17:52 | CT Report ---
PROCEDURE: CHEST WO INDICATIONS: left rib pain after fall TECHNIQUE: Noncontrast 1mm axial images were acquired from the pulmonary apices to the posterior costophrenic an gles. Axial 5 mm soft tissue kernel reconstructions were performed as well as 8 mm axial MIP and cor onal and sagittal 5 mm reformations. For radiation dose reduction, the following was used: automate d exposure control, adjustment of mA and/or kV according to patient size. COMPARISON: FINDINGS: Image quality: Excellent. Lungs and pleura: No consolidation. No pleural effusions. No pneumothorax. No suspicious pulmonary n odules which require follow up. Mediastinum: Heart size is normal. No pericardial effusion. No large vessel abnormality. No mediastin al adenopathy by size criteria. Chest wall and lower neck: Thyroid is unremarkable. Nondisplaced left sixth and seventh rib fractures . No axillary or supraclavicular adenopathy by size. Bones: Healed right fifth, sixth, and seventh rib fractures. Healed left clavicle fracture. Upper Abdomen: Unremarkable. IMPRESSION: 1. Nondisplaced left sixth and seventh rib fractures. 2. Healed right rib fractures and healed left clavicle fracture. Reviewed by: Kole Tovar on 02/01/2023 5:51 PM PDT Approved by: Kole Tovar on 02/01/2023 5:51 PM PDT Station ID: [id number]
--- NOTE | 2023-02-01 18:27 | CT Report ---
PROCEDURE: ABDOMEN/PELVIS WO INDICATIONS: left flank pain after fall TECHNIQUE: A CT scan of the abdomen and pelvis was performed without the use of intravenous contrast. Images we re recorded and evaluated at appropriate window settings. Reformats: coronal and sagittal. For radiat ion dose reduction, the following was used: automated exposure control, adjustment of mA and/or kV ac cording to patient size. COMPARISON: 10/07/2022 FINDINGS: Image quality: Excellent. Lung bases and heart: Dictated separately Liver: Liver contour is grossly normal. No significant perihepatic fluid. Gallbladder and biliary tree: Surgically absent. Spleen: Enlarged spleen measuring 15.8 cm in length, similar compared to the prior study. Fairly homo geneous attenuation and no perisplenic inflammation or fluid. Pancreas: Normal size. Adrenals: No masses. Kidneys and ureters: A cyst arises from the posterior lower pole right kidney. Trace left perinephri c fat stranding, probably similar compared to the prior study. Nonobstructing punctate left intrarena l calculus. No hydronephrosis. Bowel and peritoneum: Increased quantity of solid stool. Stomach and small bowel loops are within nor mal limits. There is an anastomotic staple line in the right lower quadrant. Normal appendix is seen. No free fluid or free air. Lymph nodes: No central or retroperitoneal adenopathy. Vessels: Infrarenal peripherally calcified distal abdominal aortic aneurysm measuring 3.7 x 4.2 cm. N o retroperitoneal hematoma. PELVIS Reproductive organs: Nonenlarged prostate gland. Bladder: Markedly distended urinary bladder with an abnormal appearance of intramural emphysema and l arge amount of intraluminal gas. There is no perivesicular inflammation or visible wall thickening. T here is no extravasation of fluid. Pelvic lymph nodes: No pelvic adenopathy by size criteria. Bones: Grade 1-2 anterolisthesis L5 on S1 and severe disc height loss at this level. No visible verte bral body fractures. No visible hip or pelvic fractures. Other: There is mild right anterior abdominal subcutaneous contusion. No other significant subcutaneo us or intramuscular hematomas. IMPRESSION: 1. In the absence of IV contrast. No definite solid organ injury to account for left flank pain. 2. Abnormal intramural emphysema in the urinary bladder and intraluminal gas. Mccarthy catheterization i s recommended. Correlate with UA to exclude emphysematous cystitis. 3. No visible fractures. 4. Infrarenal abdominal aortic aneurysm is stable. Reviewed by: Danika Larson MD on 02/01/2023 5:26 PM HANDY Approved by: Danika Larson MD on 02/01/2023 5:26 PM HANDY Station ID: [id number]
[2023-02-01 19:06] LABS: BILIRUBIN,URINE NEGATIVE (NEGATIVE); CLARITY,URINE SL. CLOUDY (CLEAR); GLUCOSE, URINE (UA) 500 mg/dL (NEGATIVE); KETONES,URINE (UA) TRACE mg/dL (NEGATIVE); LEUKOCYTE ESTERASE, URINE MODERATE (NEGATIVE); NITRITE,URINE NEGATIVE (NEGATIVE); OCCULT BLOOD,URINE LARGE (NEGATIVE); PH,URINE 5.5 PH (5.0-7.5); PROTEIN,URINE 100 mg/dL (NEGATIVE); UROBILINOGEN,URINE 1 (NORMAL) E.U./dL (NORMAL)
[2023-02-01 19:09] LABS: BASOPHILS # (AUTO) 0.1 10^3/uL (0.0-0.1); BASOPHILS % (AUTO) 0.5 %; EOSINOPHILS % (AUTO) 0.3 %; HCT - HEMATOCRIT 46.4 % (42.0-52.0); HGB - HEMOGLOBIN 15.4 g/dL (14.0-18.0); MEAN CORPUSCULAR HEMOGLOBIN 29.4 pg (27.0-31.0); MEAN CORPUSCULAR HGB CONC 33.2 g/dL (32.0-36.0); MEAN CORPUSCULAR VOLUME 88.5 fL (80.0-94.0); MEAN PLATELET VOLUME 9.9 fL (7.4-11.4); MONOCYTES % (AUTO) 6.5 %; NEUTROPHILS # (AUTO) 12.3 10^3/uL (1.5-6.6); NEUTROPHILS % (AUTO) 79.2 %; PLT - PLATELET COUNT 222 10^3/uL (130-450); RED BLOOD COUNT 5.24 10^6/uL (4.70-6.10); RED CELL DISTRIBUTION WIDTH 14.6 % (12.0-15.0); WHITE BLOOD COUNT 15.5 x10^3/uL (4.8-10.8)
[2023-02-01 19:15] LABS: BACTERIA,URINE Moderate /HPF (None Seen); RBC,URINE TNTC /HPF (0-5); SQUAMOUS EPITHELIAL CELL,UR FEW Squamous (<= Few); WBC,URINE >25 /HPF (0-3)
[2023-02-01 19:17] LABS: ALBUMIN 3.8 g/dL (3.2-5.5); ALBUMIN/GLOBULIN RATIO 1.1 (1.0-2.2); BILIRUBIN,TOTAL 1.2 mg/dL (0.2-1.0); CALCIUM 9.2 mg/dL (8.5-10.3); TOTAL PROTEIN 7.3 g/dL (6.7-8.2)
[2023-02-01] MEDS ORDERED: cefTRIAXone 1 GM VIAL IVP STA (19:22)
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
[2023-02-01] MEDS ORDERED: SODIUM CHLORIDE FLUSH 0.9% 10 ML SYRINGE IVP PRN (20:28)
[2023-02-01] MEDS ORDERED: ONDANSETRON ODT 4 MG TABLET TL PRN (20:28)
[2023-02-01] MEDS ORDERED: ACETAMINOPHEN 500 MG TABLET PO PRN (20:40)
[2023-02-01 21:00] LABS: ESTIMATED AVERAGE GLUCOSE 171 mg/dL (70-100); HEMOGLOBIN A1c% 7.6 % (4.27-6.07)
[2023-02-01] MEDS: SODIUM CHLORIDE 0.9% 1,000 ML IV SCH (21:10)
[2023-02-01] MEDS: ATORVASTATIN 40 MG TABLET PO SCH (21:10)
[2023-02-01 21:12] LABS: CHOL/HDL RATIO 4.6 (<5.0); CHOLESTEROL 151 mg/dL; HDL CHOLESTEROL 33 mg/dL; LDL CHOLESTEROL,CALCULATED 103 mg/dL; LDL/HDL RATIO 3.1 (<3.6); PHOSPHORUS 3.5 mg/dL (2.5-4.6); TRIGLYCERIDES 74 mg/dL; VLDL CHOLESTEROL 15 mg/dL
[2023-02-01] MEDS: INSULIN LISPRO 300 UNIT/3 ML PEN SUBQ SCH (21:15)
[2023-02-02 05:33] LABS: BASOPHILS # (AUTO) 0.1 10^3/uL (0.0-0.1); BASOPHILS % (AUTO) 0.6 %; EOSINOPHILS # (AUTO) 0.2 10^3/uL (0.0-0.7); HCT - HEMATOCRIT 40.2 % (42.0-52.0); HGB - HEMOGLOBIN 13.2 g/dL (14.0-18.0); LYMPHOCYTES # (AUTO) 2.4 10^3/uL (1.5-3.5); LYMPHOCYTES % (AUTO) 21.5 %; MEAN CORPUSCULAR HEMOGLOBIN 29.3 pg (27.0-31.0); MEAN CORPUSCULAR HGB CONC 32.8 g/dL (32.0-36.0); MEAN CORPUSCULAR VOLUME 89.1 fL (80.0-94.0); MONOCYTES # (AUTO) 1.1 10^3/uL (0.0-1.0); MONOCYTES % (AUTO) 9.4 %; NEUTROPHILS # (AUTO) 7.4 10^3/uL (1.5-6.6); NEUTROPHILS % (AUTO) 66.2 %; PLT - PLATELET COUNT 172 10^3/uL (130-450); RED BLOOD COUNT 4.51 10^6/uL (4.70-6.10); RED CELL DISTRIBUTION WIDTH 14.7 % (12.0-15.0); WHITE BLOOD COUNT 11.2 x10^3/uL (4.8-10.8)
[2023-02-02 06:01] LABS: ALBUMIN 3.3 g/dL (3.2-5.5); ALBUMIN/GLOBULIN RATIO 1.1 (1.0-2.2); BILIRUBIN,TOTAL 1.1 mg/dL (0.2-1.0); CALCIUM 8.6 mg/dL (8.5-10.3); CREATININE 0.8 mg/dL (0.6-1.2); MAGNESIUM 1.9 mg/dL (1.7-2.8); POTASSIUM 3.6 mmol/L (3.5-5.0); TOTAL PROTEIN 6.3 g/dL (6.7-8.2)
[2023-02-02] MEDS: SODIUM CHLORIDE 0.9% 1,000 ML IV SCH (06:12)
[2023-02-02] MEDS: INSULIN LISPRO 300 UNIT/3 ML PEN SUBQ SCH ×7 (07:59→21:20)
[2023-02-02] MEDS ORDERED: MULTIVITAMIN TABLET PO SCH (08:00)
[2023-02-02] MEDS: LACTOBACILLUS RHAMNOSUS GG CAPSULE PO SCH (08:01)
[2023-02-02] MEDS: ENOXAPARIN 40 MG/0.4 ML SYRINGE SUBQ SCH (08:02)
[2023-02-02] MEDS: SODIUM CHLORIDE FLUSH 0.9% 10 ML SYRINGE IVP SCH ×3 (08:02→21:20)
[2023-02-02] MEDS: MULTIVITAMIN TABLET PO SCH (08:02)
[2023-02-02] MEDS: ASCORBIC ACID 500 MG TABLET PO SCH (08:05)
[2023-02-02] MEDS: cefTRIAXone 1 GM in SODIUM CHLORIDE 0.9% MINIBAG 100 ML IV SCH (08:10)
--- NOTE | 2023-02-02 08:38 | CONSULTATION NOTE ---
Referring Provider Consult Date: 02/02/23 Chief Complaint - Chief Complaint Chief Complaint: states breathing is good History of Present Illness - History Obtained From Records Reviewed: yes History obtained from: pt Exam Limitations: none - History of Present Illness HPI Comment/Other: fall yesterday resulting in 2 left rib fractures. admitted with a serious uti with emphysematous cystitis. surgery asked to consult for rib fractures. he states breathing is good and he has minimal to no pain. he recently recovered from multiple right rib fractures and has been using the incentive spirometer while in bed. states he has one at home. History - Past Medical History Cardiovascular: reports: Hypertension, High cholesterol Respiratory: reports: None Endocrine/Autoimmune: reports: Type 2 diabetes GI: reports: Ulcers : reports: None HEENT: reports: Other Psych: reports: None Musculoskeletal: reports: Osteoarthritis Derm: reports: Herpes zoster MRSA Hx?: No - Past Surgical History General: reports: Colonoscopy, EGD Ortho: reports: Other HEENT: reports: Tonsil/Adenoidectomy - Family & Social History Family History: Other family: Hypertension - POLST Patient has POLST: No Meds/Allgy - Home Medications Home Medications: Ambulatory Orders Medication Instructions Recorded Confirmed Dulaglutide [Trulicity] 0.75 mg SQ Q7D 10/13/20 01/23/21 Insulin Aspart [NovoLOG] 14 unit SUBQ TIDWM 10/13/20 01/23/21 Insulin Detemir [Levemir Flextouch] 40 units SUBQ BID 10/13/20 01/23/21 Losartan [Cozaar] 50 mg PO DAILY 10/13/20 01/23/21 Multivitamin 1 each PO DAILY 10/13/20 01/23/21 Rosuvastatin Calcium [Crestor] 40 mg PO QDBREAKFAST 10/13/20 01/23/21 Losartan [Cozaar] 50 mg PO DAILY 30 Days #30 tablet 05/23/22 - Allergies Allergies/Adverse Reactions: Allergies Allergy/AdvReac Type Severity Reaction Status Date / Time No Known Drug Allergies Allergy Verified 10/07/22 13:40 Exam - Vital Signs Vital Signs: Vital Signs x48h Temp Pulse Resp BP Pulse Ox O2 Flow Rate 02/02/23 07:35 36.8 C 77 18 155/71 H 93 2 02/02/23 07:33 2 02/02/23 06:33 36.3 C L 79 16 157/93 H 93 2 02/02/23 00:46 36.3 C L 74 16 124/71 94 2 - Physical Exam General Appearance: positive: No acute distress, Alert Eyes Bilateral: positive: PERRL, EOMI, No scleral icterus ENT: positive: No signs of dehydration Neck: positive: No JVD, Trachea midline Respiratory: positive: No respiratory distress Abdomen: positive: No distention Neurologic/Psychiatric: positive: Oriented x3 Conclusion/Plan - Problem List (1) Ground-level fall Conclusion/Plan: doing well after fall with 2 left rib fractures. breathing well. minimal to no pain. no other apparent injuries. agree with care. pain meds as needed. - Lab Results Fish Bones: 02/02/23 05:21 02/02/23 05:21
[2023-02-02] MEDS ORDERED: LOSARTAN 50 MG TABLET PO SCH ×2 (09:00→19:00)
--- NOTE | 2023-02-02 12:05 | PHARMACY PROGRESS NOTE ---
- Best Possible Medication History Admit Date and Time: 02/02/23 1035 Processed by: Pharmacy Medication History completed: Yes Patient Interview: Completed Secondary Source(s): Pharmacy records As the person ultimately responsible for medication therapy, providers are able to order a medication from an existing home medication list in [facility] via the "Reconcile Routine" prior to Confirmation of that medication by technical support manager. Such practice is discouraged except when the physician, in their clinical judgment, deems that a medical need exists for a medication without regard to previous use.
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
--- NOTE | 2023-02-02 13:26 | XRAY Report ---
PROCEDURE: Chest 1 View X-Ray INDICATIONS: hypoxia TECHNIQUE: One view of the chest was acquired. COMPARISON: 02/01/2023. FINDINGS: Surgical changes and devices: None. Lungs and pleura: No pleural effusions or pneumothorax. Lungs are clear. Mediastinum: Mildly tortuous thoracic aorta. Heart size is enlarged. Bones and chest wall: No suspicious bony lesions. Overlying soft tissues appear unremarkable. IMPRESSION: No acute cardiopulmonary process. Reviewed by: Twan Houser MD on 02/02/2023 1:24 PM PDT Approved by: Twan Houser MD on 02/02/2023 1:24 PM PDT Station ID: [id number]
[2023-02-02] MEDS: ATORVASTATIN 40 MG TABLET PO SCH (21:20)
[2023-02-02] MEDS: hydrALAZINE INJ 20 MG/ML VIAL IVP PRN (21:27)
[2023-02-02] MEDS: oxyCODONE 5 MG TABLET PO PRN (21:37)
[2023-02-02] MEDS ORDERED: LABETALOL 20 MG/4 ML SYRINGE IVP ONE (23:01)
[2023-02-02] MEDS: ACETAMINOPHEN 325 MG TABLET PO PRN (23:38)
[2023-02-03] MEDS: SODIUM CHLORIDE FLUSH 0.9% 10 ML SYRINGE IVP SCH ×3 (00:55→22:58)
[2023-02-03 04:42] LABS: BASOPHILS # (AUTO) 0.1 10^3/uL (0.0-0.1); BASOPHILS % (AUTO) 0.7 %; EOSINOPHILS # (AUTO) 0.3 10^3/uL (0.0-0.7); EOSINOPHILS % (AUTO) 2.7 %; HCT - HEMATOCRIT 42.7 % (42.0-52.0); HGB - HEMOGLOBIN 14.1 g/dL (14.0-18.0); LYMPHOCYTES # (AUTO) 2.4 10^3/uL (1.5-3.5); LYMPHOCYTES % (AUTO) 21.2 %; MEAN CORPUSCULAR HEMOGLOBIN 29.1 pg (27.0-31.0); MEAN CORPUSCULAR VOLUME 88.2 fL (80.0-94.0); MEAN PLATELET VOLUME 10.2 fL (7.4-11.4); MONOCYTES % (AUTO) 8.6 %; NEUTROPHILS # (AUTO) 7.6 10^3/uL (1.5-6.6); NEUTROPHILS % (AUTO) 66.4 %; PLT - PLATELET COUNT 156 10^3/uL (130-450); RED BLOOD COUNT 4.84 10^6/uL (4.70-6.10); RED CELL DISTRIBUTION WIDTH 14.5 % (12.0-15.0); WHITE BLOOD COUNT 11.4 x10^3/uL (4.8-10.8)
[2023-02-03 04:52] LABS: CALCIUM 8.7 mg/dL (8.5-10.3); CREATININE 0.7 mg/dL (0.6-1.2); POTASSIUM 3.8 mmol/L (3.5-5.0)
[2023-02-03] MEDS: hydrALAZINE INJ 20 MG/ML VIAL IVP PRN ×2 (05:33→22:52)
[2023-02-03] MEDS ORDERED: LABETALOL 20 MG/4 ML SYRINGE IVP ONE (07:33)
[2023-02-03] MEDS ORDERED: INSULIN GLARGINE-YFGN 300 UNIT/3 ML PEN SUBQ SCH (08:00)
[2023-02-03] MEDS: INSULIN LISPRO 300 UNIT/3 ML PEN SUBQ SCH ×6 (08:16→17:09)
[2023-02-03] MEDS: LOSARTAN 50 MG TABLET PO SCH (08:17)
[2023-02-03] MEDS: ASCORBIC ACID 500 MG TABLET PO SCH ×2 (08:17→11:52)
[2023-02-03] MEDS: LACTOBACILLUS RHAMNOSUS GG CAPSULE PO SCH (08:17)
[2023-02-03] MEDS: MULTIVITAMIN TABLET PO SCH (08:17)
[2023-02-03] MEDS: ACETAMINOPHEN 325 MG TABLET PO PRN ×2 (08:18→16:08)
[2023-02-03] MEDS: ENOXAPARIN 40 MG/0.4 ML SYRINGE SUBQ SCH (08:18)
[2023-02-03] MEDS: cefTRIAXone 1 GM in SODIUM CHLORIDE 0.9% MINIBAG 100 ML IV SCH (08:19)
[2023-02-03] MEDS: METOPROLOL TARTRATE 25 MG TABLET PO SCH ×2 (08:39→21:05)
[2023-02-03] MEDS: amLODIPine 5 MG TABLET PO SCH (08:40)
[2023-02-03] MEDS: CALCIUM CARBONATE CHEW 500 MG TABLET PO SCH ×2 (11:52→21:03)
[2023-02-03] MEDS: CHOLECALCIFEROL 25 MCG TABLET PO SCH (11:54)
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
[2023-02-03] MEDS ORDERED: INSULIN LISPRO 300 UNIT/3 ML PEN SUBQ SCH (21:00)
[2023-02-03] MEDS: ATORVASTATIN 40 MG TABLET PO SCH (21:03)
[2023-02-04] MEDS ORDERED: hydrALAZINE INJ 20 MG/ML VIAL IVP ONE ×2 (00:06→06:20)
[2023-02-04] MEDS: SODIUM CHLORIDE FLUSH 0.9% 10 ML SYRINGE IVP SCH ×3 (00:32→16:58)
[2023-02-04] MEDS: ACETAMINOPHEN 325 MG TABLET PO PRN ×2 (00:34→08:19)
[2023-02-04] MEDS: oxyCODONE 5 MG TABLET PO PRN (03:32)
[2023-02-04 06:04] LABS: BASOPHILS # (AUTO) 0.1 10^3/uL (0.0-0.1); BASOPHILS % (AUTO) 0.5 %; EOSINOPHILS # (AUTO) 0.2 10^3/uL (0.0-0.7); EOSINOPHILS % (AUTO) 1.2 %; HGB - HEMOGLOBIN 15.1 g/dL (14.0-18.0); LYMPHOCYTES # (AUTO) 1.8 10^3/uL (1.5-3.5); LYMPHOCYTES % (AUTO) 13.4 %; MEAN CORPUSCULAR HEMOGLOBIN 29.3 pg (27.0-31.0); MEAN CORPUSCULAR HGB CONC 33.6 g/dL (32.0-36.0); MEAN CORPUSCULAR VOLUME 87.4 fL (80.0-94.0); NEUTROPHILS # (AUTO) 10.6 10^3/uL (1.5-6.6); NEUTROPHILS % (AUTO) 77.4 %; PLT - PLATELET COUNT 172 10^3/uL (130-450); RED BLOOD COUNT 5.15 10^6/uL (4.70-6.10); RED CELL DISTRIBUTION WIDTH 14.6 % (12.0-15.0); WHITE BLOOD COUNT 13.6 x10^3/uL (4.8-10.8)
[2023-02-04 06:17] LABS: CREATININE 0.7 mg/dL (0.6-1.2); POTASSIUM 3.6 mmol/L (3.5-5.0)
[2023-02-04] MEDS: INSULIN GLARGINE-YFGN 300 UNIT/3 ML PEN SUBQ SCH (08:16)
[2023-02-04] MEDS: INSULIN LISPRO 300 UNIT/3 ML PEN SUBQ SCH ×7 (08:17→22:07)
[2023-02-04] MEDS: ENOXAPARIN 40 MG/0.4 ML SYRINGE SUBQ SCH (08:18)
[2023-02-04] MEDS: CHOLECALCIFEROL 25 MCG TABLET PO SCH (08:18)
[2023-02-04] MEDS: CALCIUM CARBONATE CHEW 500 MG TABLET PO SCH ×2 (08:19→22:00)
[2023-02-04] MEDS: LOSARTAN 50 MG TABLET PO SCH (08:19)
[2023-02-04] MEDS: amLODIPine 5 MG TABLET PO SCH (08:21)
[2023-02-04] MEDS: MULTIVITAMIN TABLET PO SCH (08:21)
[2023-02-04] MEDS: LACTOBACILLUS RHAMNOSUS GG CAPSULE PO SCH (08:21)
[2023-02-04] MEDS: cefTRIAXone 1 GM in SODIUM CHLORIDE 0.9% MINIBAG 100 ML IV SCH (08:22)
[2023-02-04] MEDS ORDERED: METOPROLOL TARTRATE 25 MG TABLET PO SCH (09:00)
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
[2023-02-04] MEDS: hydrALAZINE INJ 20 MG/ML VIAL IVP PRN (17:21)
[2023-02-04] MEDS ORDERED: hydrALAZINE 25 MG TABLET PO SCH (18:00)
[2023-02-04] MEDS: METOPROLOL TARTRATE 25 MG TABLET PO SCH (18:04)
[2023-02-04] MEDS: ATORVASTATIN 40 MG TABLET PO SCH (22:00)
[2023-02-05] MEDS: SODIUM CHLORIDE FLUSH 0.9% 10 ML SYRINGE IVP SCH ×2 (02:15→11:05)
[2023-02-05 05:50] LABS: BASOPHILS # (AUTO) 0.1 10^3/uL (0.0-0.1); BASOPHILS % (AUTO) 0.7 %; EOSINOPHILS # (AUTO) 0.6 10^3/uL (0.0-0.7); EOSINOPHILS % (AUTO) 5.1 %; HCT - HEMATOCRIT 44.8 % (42.0-52.0); HGB - HEMOGLOBIN 14.9 g/dL (14.0-18.0); LYMPHOCYTES # (AUTO) 2.6 10^3/uL (1.5-3.5); LYMPHOCYTES % (AUTO) 20.7 %; MEAN CORPUSCULAR HEMOGLOBIN 29.2 pg (27.0-31.0); MEAN CORPUSCULAR HGB CONC 33.3 g/dL (32.0-36.0); MEAN CORPUSCULAR VOLUME 87.8 fL (80.0-94.0); MEAN PLATELET VOLUME 10.1 fL (7.4-11.4); MONOCYTES # (AUTO) 1.1 10^3/uL (0.0-1.0); MONOCYTES % (AUTO) 9.1 %; NEUTROPHILS # (AUTO) 7.9 10^3/uL (1.5-6.6); NEUTROPHILS % (AUTO) 63.9 %; PLT - PLATELET COUNT 182 10^3/uL (130-450); RED CELL DISTRIBUTION WIDTH 14.8 % (12.0-15.0); WHITE BLOOD COUNT 12.3 x10^3/uL (4.8-10.8)
[2023-02-05 05:58] LABS: CALCIUM 9.2 mg/dL (8.5-10.3); CREATININE 0.8 mg/dL (0.6-1.2); POTASSIUM 3.9 mmol/L (3.5-5.0)
[2023-02-05] MEDS: INSULIN GLARGINE-YFGN 300 UNIT/3 ML PEN SUBQ SCH (08:34)
[2023-02-05] MEDS: INSULIN LISPRO 300 UNIT/3 ML PEN SUBQ SCH ×4 (08:35→11:51)
[2023-02-05] MEDS: CALCIUM CARBONATE CHEW 500 MG TABLET PO SCH (08:37)
[2023-02-05] MEDS: LOSARTAN 50 MG TABLET PO SCH (08:37)
[2023-02-05] MEDS: ENOXAPARIN 40 MG/0.4 ML SYRINGE SUBQ SCH (08:37)
[2023-02-05] MEDS: ASCORBIC ACID 500 MG TABLET PO SCH (08:37)
[2023-02-05] MEDS: amLODIPine 5 MG TABLET PO SCH (08:38)
[2023-02-05] MEDS: LACTOBACILLUS RHAMNOSUS GG CAPSULE PO SCH (08:38)
[2023-02-05] MEDS: CHOLECALCIFEROL 25 MCG TABLET PO SCH (08:38)
[2023-02-05] MEDS: MULTIVITAMIN TABLET PO SCH (08:38)
[2023-02-05] MEDS: METOPROLOL TARTRATE 25 MG TABLET PO SCH (08:38)
[2023-02-05] MEDS ORDERED: SULFAMETH/TRIMETH DS 800/160 MG TABLET PO SCH (10:31)
--- NOTE | 2023-02-05 10:36 | Discharge Plan ---
Discharge Plan Problem Reviewed?: Yes Disposition: Home Health Service Condition: Fair Prescriptions: Sulfamethox/Trimeth 800/160 [Bactrim Ds] 1 tab PO BID #18 tab Lactobacillus Rhamnosus GG [Culturelle] 1 cap PO DAILY #9 cap Losartan/Hydrochlorothiazide [Losartan-Hctz 100-12.5 mg Tab] 1 each PO DAILY #30 tablet amLODIPine [Norvasc] 5 mg PO DAILY #30 tab Metoprolol Succinate [Toprol Xl] 50 mg PO DAILY #30 tablet Diet: Diabetic (Eat a low-sodium and diabetic diet please) Activity Restrictions: Activity as Tolerated Instruction Topics: ED Catheter Care Marcelino Health Concerns: You were hospitalized to treat a urinary tract infection, you are going home with a new Marcelino catheter. Your blood pressure was under very poor control, having been on a low-dose of only one blood pressure medicine. We have needed to use 3 blood pressure medicines to get your blood pressure under control. You are being discharged home today with prescriptions that were electronically sent to your [facility] pharmacy in [place], to take 9 more days of oral antibiotics plus a probiotic, also several additional blood pressure medicines and your previous Losartan medicine dose was adjusted and increased. You may resume all your other usual medications and diabetic management. You have become deconditioned. You need more physical therapy and rehab. Since you did not want to go to a nursing facility for several weeks of rehab, we have ordered a Home Health agency to come to your residence and give you physical therapy. Also a nurse, to check the new marcelino, and a bath aide to help you have been ordered. Plan of Treatment: As above. Care Goals: Improvement in symptoms and stabilization are the goals. Assessment: The patient understands and is agreeable with the plan. Additional Instructions or Follow Up instructions: If you have new or worsening problems, call your primary care provider for advice, or come to the ER. You need to be referred to a Urologist for further management with your Marcelino. Follow-Up Care: Home Health - RN, Home Health - PT, Home Health - OT No Smoking: If you smoke, Please STOP! Call for help. Follow-up with: Ha Gaytan DO [Primary Care Provider] -
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
[2023-02-05 13:37] VITALS: BP 156/76
== END 2023-02-05 13:45 | disposition home health service (06) | DRG 690 ==
LOC: EDUNIT# → ED 16:09 → MS2 20:32 → OBSVTOIN 02-02 10:35
PROVIDERS: ADMIT Student in an Organized Health Care Education/Training Program; ATTEND Internal Medicine
DX: N30.80 Other cystitis without hematuria (principal); S30.811A Abrasion of abdominal wall, initial encounter; S22.42XA Multiple fractures of ribs, left side, initial encounter for closed fracture; N30.00 Acute cystitis without hematuria; D72.829 Elevated white blood cell count, unspecified; W01.0XXA Fall on same level from slipping, tripping and stumbling without subsequent striking against object, initial encounter; I10 Essential (primary) hypertension; E11.65 Type 2 diabetes mellitus with hyperglycemia; E78.00 Pure hypercholesterolemia, unspecified; M19.90 Unspecified osteoarthritis, unspecified site; B96.20 Unspecified Escherichia coli [E. coli] as the cause of diseases classified elsewhere; R09.02 Hypoxemia; R53.1 Weakness; Z79.4 Long term (current) use of insulin; Z82.49 Family history of ischemic heart disease and other diseases of the circulatory system
CPT/HCPCS: 36415; 71045; 71250; 74176; 80048; 80053; 80061; 81001; 82947; 83036; 83690; 83735; 84100; 84443; 85025; 87040; 87077; 87086; 87181; 96365; 96372; 96376; 97162; 97166; 97530; 97535; 99284; 99285; A9270; J1170; J1650; J1815; 83721

== ENCOUNTER 2023-04-29 03:06 | Emergency (ER) | payer MEDICARE, OTHER ==
--- NOTE | 2023-04-29 03:21 | ED Physician Documentation ---
History of Present Illness - Stated complaint Stated Complaint: MALE - Additonal information Additional information: Patient 78-year-old male with past medical significant for recent (postoperative day 11) transurethral resection of Prostate and chronic urinary retention prese nting to the emergency department with chief complaint of Dark urine. Reports coming to the emergency department today for increasing Todd dark urine. States had urinary catheter removed 3 days ago. He denies any fever, pain, feelings of retention or incomplete voiding. Does not take blood thinning medications. PD PAST MEDICAL HISTORY - Past Medical History Cardiovascular: Hypertension, High cholesterol Respiratory: None Neuro: Peripheral neuropathy Endocrine/Autoimmune: Type 2 diabetes GI: Ulcers : Other HEENT: Other Psych: None Musculoskeletal: Osteoarthritis Derm: Herpes zoster - Past Surgical History Past Surgical History: Yes General: Colonoscopy, EGD Ortho: Other HEENT: Tonsil/Adenoidectomy - Present Medications Home Medications: Ambulatory Orders Medication Instructions Recorded Confirmed Dulaglutide [Trulicity] 0.75 mg SQ Q7D 10/13/20 04/15/23 Insulin Detemir [Levemir Flextouch] 40 units SUBQ BID 10/13/20 04/18/23 Multivitamin 1 each PO DAILY 10/13/20 04/18/23 Rosuvastatin Calcium [Crestor] 40 mg PO QDBREAKFAST 10/13/20 04/18/23 Losartan/Hydrochlorothiazide 1 each PO DAILY #30 tablet 02/05/23 04/18/23 [Losartan-Hctz 100-12.5 mg Tab] Insulin Aspart [Novolog Flexpen] 22 unit SQ TID 04/15/23 04/18/23 Metformin HCl 1,000 mg PO BID 04/15/23 04/18/23 Docusate Sodium 100Mg Capsule 100 mg PO DAILY 7 Days #7 cap 04/18/23 [Colace 100Mg Capsule] HYDROcod/ACETAM 5/325 [[place] 5/325] 1 tab PO Q4H PRN #10 tablet 04/18/23 - Allergies Allergies/Adverse Reactions: Allergies Allergy/AdvReac Type Severity Reaction Status Date / Time No Known Drug Allergies Allergy Verified 04/29/23 03:34 - Social History Does the pt smoke?: No Smoking Status: Former smoker Does the pt drink ETOH?: No Does the pt have substance abuse?: No - Immunizations Immunizations are current?: Yes - POLST Patient has POLST: No Results - Vitals Vitals: Vital Signs - 24 hr 04/29/23 04/29/23 04/29/23 03:10 03:11 04:58 Temperature 37.2 C Heart Rate 80 80 Respiratory 20 18 Rate Blood Pressure 177/97 H 193/97 H O2 Saturation 88 L 94 98 If not protocol 2 : Oxygen Flow, liters/minute Oxygen O2 Source Room air - Labs Labs: Laboratory Tests 04/29/23 04/29/23 04/29/23 03:15 03:27 03:27 WBC 13.2 H RBC 4.91 Hgb 14.9 Hct 43.4 MCV 88.4 MCH 30.3 MCHC 34.3 RDW 14.6 Plt Count 208 MPV 10.1 Neut # (Auto) 8.8 H Lymph # (Auto) 2.6 [place] # (Auto) 1.1 H Eos # (Auto) 0.5 Baso # (Auto) 0.1 Absolute Nucleated RBC 0.00 Nucleated RBC % 0.0 PT INR Sodium 138 Potassium 4.4 Chloride 107 Carbon Dioxide 25 Anion Gap 6.0 BUN 18 Creatinine 0.9 Estimated GFR (MDRD) 82 L Glucose 446 H Calcium 9.4 Total Bilirubin 1.0 AST 12 ALT 9 L Alkaline Phosphatase 75 Total Creatine Kinase 88 Total Protein 6.9 Albumin 4.0 Globulin 2.9 Albumin/Globulin Ratio 1.4 Lipase 30 Urine Color BROWN Urine Clarity BLOODY Urine pH Ur Specific [place] 1.020 Urine Protein Urine Glucose (UA) Urine Ketones Urine Occult Blood LARGE H Urine Nitrite Urine Bilirubin NEGATIVE Urine Urobilinogen Ur Leukocyte Esterase TRACE H Urine RBC TNTC H Urine WBC 6-10 H Ur Squamous Epith Cells NONE SEEN Urine Bacteria Rare Ur Microscopic Review INDICATED Urine Culture Comments INDICATED 04/29/23 03:27 WBC RBC Hgb Hct MCV MCH MCHC RDW Plt Count MPV Neut # (Auto) Lymph # (Auto) [place] # (Auto) Eos # (Auto) Baso # (Auto) Absolute Nucleated RBC Nucleated RBC % PT 12.3 INR 1.1 Sodium Potassium Chloride Carbon Dioxide Anion Gap BUN Creatinine Estimated GFR (MDRD) Glucose Calcium Total Bilirubin AST ALT Alkaline Phosphatase Total Creatine Kinase Total Protein Albumin Globulin Albumin/Globulin Ratio Lipase Urine Color Urine Clarity Urine pH Ur Specific [place] Urine Protein Urine Glucose (UA) Urine Ketones Urine Occult Blood Urine Nitrite Urine Bilirubin Urine Urobilinogen Ur Leukocyte Esterase Urine RBC Urine WBC Ur Squamous Epith Cells Urine Bacteria Ur Microscopic Review Urine Culture Comments PD Medical Decision Making - ED course Complexity details: reviewed old records, reviewed results, re-evaluated patient, considered differential, d/w patient ED course: Patient 78-year-old male presenting to the emergency department with dark urine. This is approximately postprocedure day 7 from transurethral resection of his prostate. Denied abdominal pain and had a benign abdominal exam here in the emergency department. Minimal leukocytosis with bandemia noted on labs as well as hyperglycemia consistent with his known history of poorly controlled type 2 diabetes. Urine analysis was limited due to color interference but did demonstrate RBCs too numerous to count as well as positive for blood. No indications of rhabdomyolysis or renal failure. Additionally there were a few white blood cells as well as rare bacteria noted. Given dose Rocephin here in the emergency department. Does not appear to be experiencing any kind of urinary obstruction or passage of clots. Discussed options with patient and at this time he is amenable to going home for follow-up with his urologist in the a.m. Clear return precautions given prior to discharge. Departure - Departure Disposition: Home, Self Care Clinical Impression: Hematuria
[2023-04-29 03:43] LABS: BASOPHILS # (AUTO) 0.1 10^3/uL (0.0-0.1); EOSINOPHILS # (AUTO) 0.5 10^3/uL (0.0-0.7); EOSINOPHILS % (AUTO) 3.4 %; HCT - HEMATOCRIT 43.4 % (42.0-52.0); HGB - HEMOGLOBIN 14.9 g/dL (14.0-18.0); LYMPHOCYTES # (AUTO) 2.6 10^3/uL (1.5-3.5); LYMPHOCYTES % (AUTO) 19.8 %; MEAN CORPUSCULAR HEMOGLOBIN 30.3 pg (27.0-31.0); MEAN CORPUSCULAR HGB CONC 34.3 g/dL (32.0-36.0); MEAN CORPUSCULAR VOLUME 88.4 fL (80.0-94.0); MEAN PLATELET VOLUME 10.1 fL (7.4-11.4); MONOCYTES # (AUTO) 1.1 10^3/uL (0.0-1.0); MONOCYTES % (AUTO) 8.5 %; NEUTROPHILS # (AUTO) 8.8 10^3/uL (1.5-6.6); NEUTROPHILS % (AUTO) 66.8 %; PLT - PLATELET COUNT 208 10^3/uL (130-450); RED BLOOD COUNT 4.91 10^6/uL (4.70-6.10); RED CELL DISTRIBUTION WIDTH 14.6 % (12.0-15.0); WHITE BLOOD COUNT 13.2 x10^3/uL (4.8-10.8)
[2023-04-29 03:46] LABS: BILIRUBIN,URINE NEGATIVE (NEGATIVE); LEUKOCYTE ESTERASE, URINE TRACE (NEGATIVE); OCCULT BLOOD,URINE LARGE (NEGATIVE)
[2023-04-29 03:49] LABS: CLARITY,URINE BLOODY (CLEAR)
[2023-04-29 03:51] LABS: BACTERIA,URINE Rare /HPF (None Seen); RBC,URINE TNTC /HPF (0-5); SQUAMOUS EPITHELIAL CELL,UR NONE SEEN (<= Few)
[2023-04-29 03:57] LABS: INR 1.1 (0.8-1.2); PT - PROTHROMBIN TIME 12.3 secs (9.9-12.6)
[2023-04-29] MEDS ORDERED: cefTRIAXone 1 GM in SODIUM CHLORIDE 0.9% MINIBAG 100 ML IV STA (04:41)
[2023-04-29 04:42] LABS: ALBUMIN/GLOBULIN RATIO 1.4 (1.0-2.2); CALCIUM 9.4 mg/dL (8.5-10.3); CREATININE 0.9 mg/dL (0.6-1.3); POTASSIUM 4.4 mmol/L (3.5-4.5); TOTAL PROTEIN 6.9 g/dL (6.4-8.9)
[2023-04-29] MEDS ORDERED: cefTRIAXone 1 GM VIAL ONE (05:02)
[2023-04-29 05:39] VITALS: BP 184/111; O2SAT 92
== END 2023-04-29 06:04 | disposition home or self-care (01) ==
LOC: ED 03:06
DX: R31.9 Hematuria, unspecified (principal); I10 Essential (primary) hypertension; E78.00 Pure hypercholesterolemia, unspecified; E11.42 Type 2 diabetes mellitus with diabetic polyneuropathy; Z79.4 Long term (current) use of insulin; Z79.84 Long term (current) use of oral hypoglycemic drugs; Z79.899 Other long term (current) drug therapy; Z87.891 Personal history of nicotine dependence
CPT/HCPCS: 36415; 80053; 81001; 81003; 82550; 83690; 85025; 85610; 87077; 87086; 87181; 96365; 99283

== ENCOUNTER 2023-05-15 15:51 | Emergency (ER) | payer MEDICARE, OTHER ==
--- NOTE | 2023-05-15 16:11 | ED Physician Documentation ---
PD HPI MALE - Stated complaint Stated Complaint: - Chief complaint Chief Complaint: UTI - History obtained from History obtained from: Patient - History of Present Illness Associated symptoms: Hematuria - Additional information Additional information: 78-year-old male with a history of recurrent UTIs as well as BPH with recent TURP presents with hematuria. Symptoms started this afternoon. Patient states he recently completed a course of antibiotics for UTI about a week ago and had been doing well up until today. He passed some blood in his urine and now feels like he is not completely emptying her bladder is concerned that he may have a blood clot blocking his urine flow. Patient has had on and off indwelling Marcelino catheters frequently over the course the last several months due to recurrent issues. He is not on any anticoagulation. He is followed by urology. Review of Systems Constitutional: reports: Reviewed and negative Eyes: reports: Reviewed and negative Ears: reports: Reviewed and negative Nose: reports: Reviewed and negative Throat: reports: Reviewed and negative Cardiac: reports: Reviewed and negative Respiratory: reports: Reviewed and negative GI: reports: Reviewed and negative : reports: Dysuria, Frequency, Hesitancy, Hematuria. denies: Incontinent, Testicular pain, Testicular mass Skin: reports: Reviewed and negative PD PAST MEDICAL HISTORY - Past Medical History Past Medical History: Yes Cardiovascular: Hypertension, High cholesterol Respiratory: None Neuro: Peripheral neuropathy Endocrine/Autoimmune: Type 2 diabetes GI: Ulcers : Other HEENT: Other Psych: None Musculoskeletal: Osteoarthritis Derm: Herpes zoster - Past Surgical History Past Surgical History: Yes General: Colonoscopy, EGD Ortho: Other HEENT: Tonsil/Adenoidectomy - Present Medications Home Medications: Ambulatory Orders Medication Instructions Recorded Confirmed Dulaglutide [Trulicity] 0.75 mg SQ Q7D 10/13/20 05/15/23 Insulin Detemir [Levemir Flextouch] 40 units SUBQ BID 10/13/20 05/15/23 Multivitamin 1 each PO DAILY 10/13/20 05/15/23 Rosuvastatin Calcium [Crestor] 40 mg PO QDBREAKFAST 10/13/20 05/15/23 Losartan/Hydrochlorothiazide 1 each PO DAILY #30 tablet 02/05/23 05/15/23 [Losartan-Hctz 100-12.5 mg Tab] Insulin Aspart [Novolog Flexpen] 22 unit SQ TID 04/15/23 05/15/23 Docusate Sodium 100Mg Capsule 100 mg PO DAILY 7 Days #7 cap 04/18/23 05/15/23 [Colace 100Mg Capsule] - Allergies Allergies/Adverse Reactions: Allergies Allergy/AdvReac Type Severity Reaction Status Date / Time No Known Drug Allergies Allergy Verified 05/15/23 15:58 - Social History Does the pt smoke?: No Smoking Status: Former smoker Does the pt drink ETOH?: No Does the pt have substance abuse?: No - Immunizations Immunizations are current?: Yes - POLST Patient has POLST: No PD ED PE NORMAL - Vitals Vital signs reviewed: Yes - General General: Alert and oriented X 3, No acute distress, Well developed/nourished - HEENT HEENT: Atraumatic, Moist mucous membranes - Cardiac Cardiac: RRR, No murmur - Respiratory Respiratory: No respiratory distress, Clear bilaterally - Abdomen Abdomen: Normal bowel sounds, Soft, Non tender - Back Back: No CVA TTP, No spinal TTP - Derm Derm: Normal color, Warm and dry Results - Vitals Vitals: Vital Signs - 24 hr 05/15/23 05/15/23 15:58 17:48 Temperature 36.8 C Heart Rate 81 79 Respiratory 16 16 Rate Blood Pressure 180/90 H 183/104 H O2 Saturation 92 94 Oxygen O2 Source Room air - Labs Labs: Laboratory Tests 05/15/23 05/15/23 05/15/23 16:30 17:34 17:34 WBC 13.2 H RBC 4.52 L Hgb 13.7 L Hct 39.9 L MCV 88.3 MCH 30.3 MCHC 34.3 RDW 14.8 Plt Count 191 MPV 9.9 Neut # (Auto) 9.7 H Lymph # (Auto) 2.0 [place] # (Auto) 1.0 Eos # (Auto) 0.3 Baso # (Auto) 0.1 Absolute Nucleated RBC 0.00 Nucleated RBC % 0.0 Sodium 136 Potassium 4.4 Chloride 104 Carbon Dioxide 25 Anion Gap 7.0 BUN 16 Creatinine 0.9 Estimated GFR (MDRD) 82 L Glucose 481 H Calcium 9.4 Urine Color RED/BLOODY Urine Clarity BLOODY Urine pH Ur Specific [place] Urine Protein Urine Glucose (UA) Urine Ketones Urine Occult Blood Urine Nitrite Urine Bilirubin COLOR INTERFERENCE Urine Urobilinogen Ur Leukocyte Esterase Urine RBC TNTC H Urine WBC 0-3 Ur Squamous Epith Cells NONE SEEN Urine Bacteria None Seen Ur Microscopic Review INDICATED Urine Culture Comments NOT INDICATED PD Medical Decision Making - ED course Complexity details: reviewed results, considered differential, d/w patient ED course: 78-year-old male presented after having hematuria today and feeling like he is not completely emptying his bladder. On arrival here, patient is well- appearing, nontoxic, his abdominal exam is benign. We obtained a urinalysis which was calvin blood therefore I did place a Marcelino catheter and irrigated Frequently however he continued to have gross hematuria therefore we placed a larger indwelling urinary catheter and he began to have good urine flow. Luis Alberto bloody but free-flowing. Labs are stable, his renal function is normal, and he does not have signs of a UTI at this time. Patient feels substantially better now that the urine is free-flowing therefore we will discharge him home with Marcelino catheter and he is to follow-up with urology this week. He will need repeat CBC and BMP at that time to monitor renal function and hemoglobin. He was advised to return if he had any signs of urine obstruction, increased abdominal pain, fever or other new concerns. Of note, patient quite hyperglycemic here which appears to be common for him. He was encouraged to monitor his glucose closely at home and continue his diabetes medicine. He will need to follow-up with his primary doctor for management of his chronic diabetes. Departure - Departure Disposition: 01 Home, Self Care Clinical Impression: Hematuria Qualifiers: Hematuria type: gross Qualified Code(s): R31.0 - Gross hematuria Condition: Good Instructions: ED Catheter Care Fabio, ED Hematuria Follow-Up: Cal Frazier MD [Provider Admit Priv/Credential] - Comments: Please keep marcelino catheter in place until follow up with urology. You do not have a urine infection today but had a lot of blood clots in your urine. Your urine is now draining well but if the catheter stops flowing, please return to the ER.
[2023-05-15 17:10] LABS: CLARITY,URINE BLOODY (CLEAR)
[2023-05-15 17:12] LABS: BILIRUBIN,URINE COLOR INTERFERENCE (NEGATIVE); RBC,URINE TNTC /HPF (0-5); WBC,URINE 0-3 /HPF (0-3)
[2023-05-15 17:13] LABS: BACTERIA,URINE None Seen /HPF (None Seen); SQUAMOUS EPITHELIAL CELL,UR NONE SEEN (<= Few)
[2023-05-15 17:40] LABS: BASOPHILS # (AUTO) 0.1 10^3/uL (0.0-0.1); BASOPHILS % (AUTO) 0.8 %; EOSINOPHILS # (AUTO) 0.3 10^3/uL (0.0-0.7); EOSINOPHILS % (AUTO) 2.2 %; HCT - HEMATOCRIT 39.9 % (42.0-52.0); HGB - HEMOGLOBIN 13.7 g/dL (14.0-18.0); LYMPHOCYTES % (AUTO) 15.3 %; MEAN CORPUSCULAR HEMOGLOBIN 30.3 pg (27.0-31.0); MEAN CORPUSCULAR HGB CONC 34.3 g/dL (32.0-36.0); MEAN CORPUSCULAR VOLUME 88.3 fL (80.0-94.0); MEAN PLATELET VOLUME 9.9 fL (7.4-11.4); MONOCYTES % (AUTO) 7.9 %; NEUTROPHILS # (AUTO) 9.7 10^3/uL (1.5-6.6); NEUTROPHILS % (AUTO) 73.3 %; PLT - PLATELET COUNT 191 10^3/uL (130-450); RED BLOOD COUNT 4.52 10^6/uL (4.70-6.10); RED CELL DISTRIBUTION WIDTH 14.8 % (12.0-15.0); WHITE BLOOD COUNT 13.2 x10^3/uL (4.8-10.8)
[2023-05-15 17:52] VITALS: O2SAT 94
[2023-05-15 17:52] LABS: CALCIUM 9.4 mg/dL (8.5-10.3); CREATININE 0.9 mg/dL (0.6-1.3); POTASSIUM 4.4 mmol/L (3.5-4.5)
[2023-05-15] MEDS ORDERED: INSULIN REGULAR HUMAN 300 UNIT/3 ML VIAL SUBQ STA (18:07)
[2023-05-15 20:34] VITALS: BP 120/85
== END 2023-05-15 20:26 | disposition home or self-care (01) ==
LOC: ED 15:51
DX: R31.0 Gross hematuria (principal); I10 Essential (primary) hypertension; E78.00 Pure hypercholesterolemia, unspecified; E11.42 Type 2 diabetes mellitus with diabetic polyneuropathy; Z79.4 Long term (current) use of insulin; Z79.899 Other long term (current) drug therapy; Z87.891 Personal history of nicotine dependence
CPT/HCPCS: 36415; 51700; 80048; 81001; 85025; 99283; J1815; 81003; 87086

== ENCOUNTER 2023-05-16 05:36 | Outpatient (CLI) | payer MEDICARE, OTHER | END 2023-05-16 05:37 | disposition critical access hospital (66) | LOC: EMS 05:36 | DX: T83.031A Leakage of indwelling urethral catheter, initial encounter (principal); R31.9 Hematuria, unspecified | CPT/HCPCS: A0425; A0429 ==

== ENCOUNTER 2023-05-16 05:52 | Emergency (ER) | payer MEDICARE, OTHER ==
--- NOTE | 2023-05-16 06:02 | ED Physician Documentation ---
History of Present Illness - Stated complaint Stated Complaint: CATH ISSUES - Additonal information Additional information: Patient 78-year-old male presenting to the emergency department with hematuria and Mccarthy catheter problem. Recent transurethral resection of prostate. Is seen at this facility yesterday for gross hematuria and acute outlet obstruction. Had catheter placed with bilateral irrigation. Does not take blood thinning medications. Reports began to bleed around the meatus of his penis at approximately 3 AM. States since has had very little output through his catheter. Denies any pain at this time. Denies taking blood thinning medications. Denies fever, chills, chest pain, shortness of breath. Urologist is Dr. Frazier. Review of Systems Constitutional: denies: Fever Eyes: denies: Loss of vision Ears: denies: Loss of hearing Nose: denies: Rhinorrhea / runny nose Throat: denies: Dental pain / toothache Cardiac: denies: Chest pain / pressure Respiratory: denies: Dyspnea, Cough GI: denies: Abdominal Pain : reports: Hematuria. denies: Dysuria PD PAST MEDICAL HISTORY - Past Medical History Cardiovascular: Hypertension, High cholesterol Respiratory: None Neuro: Peripheral neuropathy Endocrine/Autoimmune: Type 2 diabetes GI: Ulcers : Other HEENT: Other Psych: None Musculoskeletal: Osteoarthritis Derm: Herpes zoster - Past Surgical History Past Surgical History: Yes General: Colonoscopy, EGD Ortho: Other HEENT: Tonsil/Adenoidectomy - Present Medications Home Medications: Ambulatory Orders Medication Instructions Recorded Confirmed Dulaglutide [Trulicity] 0.75 mg SQ Q7D 10/13/20 05/15/23 Insulin Detemir [Levemir Flextouch] 40 units SUBQ BID 10/13/20 05/15/23 Multivitamin 1 each PO DAILY 10/13/20 05/15/23 Rosuvastatin Calcium [Crestor] 40 mg PO QDBREAKFAST 10/13/20 05/15/23 Losartan/Hydrochlorothiazide 1 each PO DAILY #30 tablet 02/05/23 05/15/23 [Losartan-Hctz 100-12.5 mg Tab] Insulin Aspart [Novolog Flexpen] 22 unit SQ TID 04/15/23 05/15/23 Docusate Sodium 100Mg Capsule 100 mg PO DAILY 7 Days #7 cap 04/18/23 05/15/23 [Colace 100Mg Capsule] cephALEXin [Keflex] 500 mg PO TID #15 cap 05/16/23 - Allergies Allergies/Adverse Reactions: Allergies Allergy/AdvReac Type Severity Reaction Status Date / Time No Known Drug Allergies Allergy Verified 05/16/23 06:01 - Social History Does the pt smoke?: No Smoking Status: Former smoker Does the pt drink ETOH?: No Does the pt have substance abuse?: No - Immunizations Immunizations are current?: Yes - POLST Patient has POLST: No PD ED PE NORMAL - Vitals Vital signs reviewed: Yes - General General: Alert and oriented X 3, No acute distress, Well developed/nourished, Other (Obese) - HEENT HEENT: Atraumatic, PERRL, EOMI, Ears normal, Moist mucous membranes, Pharynx benign, Dentition benign - Neck Neck: Supple, no meningeal sign, No bony TTP, No adenopathy, Thyroid normal, No JVD, No bruit - Cardiac Cardiac: RRR, No murmur, No gallop, No rub, Strong equal pulses - Respiratory Respiratory: No respiratory distress, Clear bilaterally - Abdomen Abdomen: Normal bowel sounds - Male Male : Other (Mccarthy catheter with gross red blood in bag. No active drainage.) - Rectal Rectal: Deferred - Back Back: No CVA TTP - Derm Derm: Normal color - Extremities Extremities: No deformity - Neuro Neuro: Alert and oriented X 3, machine container washer 2-12 intact, No motor deficit, Normal speech Results - Vitals Vitals: Vital Signs - 24 hr 05/16/23 05/16/23 05/16/23 05:57 08:04 10:14 Temperature 36.8 C Heart Rate 77 76 75 Respiratory 20 20 20 Rate Blood Pressure 179/81 H 135/73 H 131/81 H O2 Saturation 95 92 97 05/16/23 05/16/23 12:00 14:25 Temperature Heart Rate 80 66 Respiratory 15 20 Rate Blood Pressure 157/84 H 143/81 H O2 Saturation 95 92 Oxygen O2 Source Room air - Labs Labs: Laboratory Tests 05/16/23 05/16/23 05/16/23 06:15 06:15 06:15 WBC 14.8 H RBC 4.06 L Hgb 12.2 L Hct 37.1 L MCV 91.4 MCH 30.0 MCHC 32.9 RDW 15.3 H Plt Count 192 MPV 10.9 Neut # (Auto) 10.9 H Lymph # (Auto) 2.3 [place] # (Auto) 1.3 H Eos # (Auto) 0.1 Baso # (Auto) 0.1 Absolute Nucleated RBC 0.00 Nucleated RBC % 0.0 PT 13.7 H INR 1.3 H Sodium Cancelled Potassium Cancelled Chloride Cancelled Carbon Dioxide Cancelled Anion Gap Cancelled BUN Cancelled Creatinine Cancelled Estimated GFR (MDRD) Cancelled Glucose Cancelled Calcium Cancelled Total Bilirubin Cancelled AST Cancelled ALT Cancelled Alkaline Phosphatase Cancelled Total Protein Cancelled Albumin Cancelled Globulin Cancelled Albumin/Globulin Ratio Cancelled Lipase Cancelled 05/16/23 07:29 WBC RBC Hgb Hct MCV MCH MCHC RDW Plt Count MPV Neut # (Auto) Lymph # (Auto) [place] # (Auto) Eos # (Auto) Baso # (Auto) Absolute Nucleated RBC Nucleated RBC % PT INR Sodium 136 Potassium 4.3 Chloride 104 Carbon Dioxide 26 Anion Gap 6.0 BUN 21 H Creatinine 1.1 Estimated GFR (MDRD) 65 L Glucose 447 H Calcium 9.0 Total Bilirubin 1.1 H AST 9 L ALT 9 L Alkaline Phosphatase 58 Total Protein 6.1 L Albumin 3.6 Globulin 2.5 Albumin/Globulin Ratio 1.4 Lipase 17 PD Medical Decision Making - ED course Complexity details: considered differential ED course: Patient 78-year-old male presenting to the emergency department with calvin hematuria and Mccarthy catheter obstruction. Proximately 1 month ago underwent transurethral resection of his prostate. Was seen 11 days thereafter with dark urine and started on course of antibiotics. Seen again in our facility yesterday for calvin red blood and bladder outlet obstruction. Had catheter placed and underwent bladder irrigation. Returns with ongoing bleeding and no output from his catheter since approximately 0300 hrs. He denies any abdominal pain. Does not take any blood thinning medications. Denies any fever, chills. Abdominal exam benign. I have ordered for CBI as well as some basic labs. I will be signing the patient out to the oncoming physician, please see their documentation for further detail. Departure - Departure Disposition: 01 Home, Self Care Clinical Impression: Gross hematuria, Mccarthy catheter problem, S/P TURP (status post transurethral re section of prostate) Condition: Stable Follow-Up: Cal Frazier MD [Provider Admit Priv/Credential] - Prescriptions: cephALEXin [Keflex] 500 mg PO TID #15 cap Comments: We have irrigated your bladder and appears to have gotten all the clots out. This is the good initial step in keeping the catheter from clogging and also allowing the bleeding area to improve (the clots will actually stretch the bladder and augment bleeding). We will leave the current catheter in place so it is draining appropriately. Presume you will still have some bloody urine coming out. Return to the ER if it seems like the catheter clogs or if you are having significant clots come out or significant increase in bleeding. Otherwise the bleeding should taper down and stop in the next day or 2. Follow- up with the urologist, Dr. Frazier in the office later this week. Call the office to set up a follow-up. He returns on Tuesday and does want to see you one of the days later this week. Due to the manipulation around the prostate and bladder with the catheters in such, Dr. Frazier does suggest starting antibiotic to prevent infection. Cephalexin 3 times daily for the next 5 days. Tylenol if needed for pains. Stay well-hydrated. I sent a prescription to your preferred pharmacy. Forms: PCP List Discharge Date/Time: 05/16/23 15:45
[2023-05-16 06:29] LABS: BASOPHILS # (AUTO) 0.1 10^3/uL (0.0-0.1); BASOPHILS % (AUTO) 0.5 %; EOSINOPHILS # (AUTO) 0.1 10^3/uL (0.0-0.7); EOSINOPHILS % (AUTO) 0.7 %; HCT - HEMATOCRIT 37.1 % (42.0-52.0); HGB - HEMOGLOBIN 12.2 g/dL (14.0-18.0); LYMPHOCYTES # (AUTO) 2.3 10^3/uL (1.5-3.5); LYMPHOCYTES % (AUTO) 15.8 %; MEAN CORPUSCULAR HGB CONC 32.9 g/dL (32.0-36.0); MEAN CORPUSCULAR VOLUME 91.4 fL (80.0-94.0); MEAN PLATELET VOLUME 10.9 fL (7.4-11.4); MONOCYTES # (AUTO) 1.3 10^3/uL (0.0-1.0); MONOCYTES % (AUTO) 8.5 %; NEUTROPHILS # (AUTO) 10.9 10^3/uL (1.5-6.6); NEUTROPHILS % (AUTO) 74.1 %; PLT - PLATELET COUNT 192 10^3/uL (130-450); RED BLOOD COUNT 4.06 10^6/uL (4.70-6.10); RED CELL DISTRIBUTION WIDTH 15.3 % (12.0-15.0); WHITE BLOOD COUNT 14.8 x10^3/uL (4.8-10.8)
[2023-05-16 07:02] LABS: INR 1.3 (0.8-1.2); PT - PROTHROMBIN TIME 13.7 secs (9.9-12.6)
[2023-05-16] MEDS ORDERED: LIDOCAINE JELLY 2% 6 ML JEL.PF.APP TOP STA (07:36)
[2023-05-16 07:45] LABS: ALBUMIN 3.6 g/dL (3.2-5.5); ALBUMIN/GLOBULIN RATIO 1.4 (1.0-2.2); BILIRUBIN,TOTAL 1.1 mg/dL (0.2-1.0); CREATININE 1.1 mg/dL (0.6-1.3); POTASSIUM 4.3 mmol/L (3.5-4.5); TOTAL PROTEIN 6.1 g/dL (6.4-8.9)
[2023-05-16 14:30] VITALS: BP 143/81; O2SAT 92
--- NOTE | 2023-05-16 14:47 | ED Physician Documentation ---
ED Addendum - Addendum Addendum: 05/16/23 14:44The patient can care since change of shift has included replacement of his initial catheter with a three-way 22 [place] for bladder irrigation. After placement of it (the current Mccarthy in was clogged and not draining and was hard to pull clots out), the nursing was able to flush and extract clots from the bladder. This was done by large syringe until cleared and then continuous irrigation was started. A few more clots came out but subsequently was just thick bloody which cleared with bladder irrigation over subsequent few hours till now a caryn tinge. We did stop the bladder irrigation and no further clots are out at this point. I did text with Dr. Frazier who is currently out of town but was available for consultation. He thought this was adequate treatment at this point and with no more clots at this time, he would recommend discharge with the bladder catheter still in place with routine care. To return if it seems to clog up again otherwise to follow-up in the office later this week. He will be back in 2 days. I discussed this with the patient and he is agreeable to the plan. We will give some antibiotics prophylactically due to the degree of manipulation occurring there at the suggestion of the urologist. Disposition: The patient is discharged home in stable condition. Diagnoses: 1. Bladder bleeding 2. Clogged Mccarthy catheter 3. Status post TURP 05/16/23 14:48
[2023-05-16] MEDS ORDERED: cephALEXin 250 MG CAPSULE PO STA (14:48)
== END 2023-05-16 15:45 | disposition home or self-care (01) ==
LOC: EDUNIT# → ED 05:52
DX: T83.098A Other mechanical complication of other urinary catheter, initial encounter (principal); R31.0 Gross hematuria; I10 Essential (primary) hypertension; E78.00 Pure hypercholesterolemia, unspecified; E11.42 Type 2 diabetes mellitus with diabetic polyneuropathy; Z79.4 Long term (current) use of insulin; Z79.899 Other long term (current) drug therapy; Z87.891 Personal history of nicotine dependence
CPT/HCPCS: 36415; 51700; 80053; 83690; 85025; 85610; 99283; 99284; A9270

== ENCOUNTER 2023-05-17 08:01 | Emergency (ER) | payer MEDICARE, OTHER ==
--- NOTE | 2023-05-17 10:07 | ED Physician Documentation ---
PD HPI MALE - Stated complaint Stated Complaint: GI/CATH ISSUE - Chief complaint Chief Complaint: Abd Pain - History obtained from History obtained from: Patient - History of Present Illness Timing - onset: Last night Timing - details: Gradual onset (was here yesterday with clogged marcelino from clots due to gross meaturia, s/p TURP 3 weeks ago. Marcelino was draining okay at dischargew tih just light hematuria. He states draining okay until overnight when clogged again. No urine out for several hours.) Associated symptoms: Marcelino problem (clogged without output.) Review of Systems Constitutional: denies: Fever, Chills PD PAST MEDICAL HISTORY - Past Medical History Cardiovascular: Hypertension, High cholesterol Respiratory: None Neuro: Peripheral neuropathy Endocrine/Autoimmune: Type 2 diabetes GI: Ulcers : Other HEENT: Other Psych: None Musculoskeletal: Osteoarthritis Derm: Herpes zoster - Past Surgical History Past Surgical History: Yes General: Colonoscopy, EGD Ortho: Other HEENT: Tonsil/Adenoidectomy - Present Medications Home Medications: Ambulatory Orders Medication Instructions Recorded Confirmed Dulaglutide [Trulicity] 0.75 mg SQ Q7D 10/13/20 05/15/23 Insulin Detemir [Levemir Flextouch] 40 units SUBQ BID 10/13/20 05/15/23 Multivitamin 1 each PO DAILY 10/13/20 05/15/23 Rosuvastatin Calcium [Crestor] 40 mg PO QDBREAKFAST 10/13/20 05/15/23 Losartan/Hydrochlorothiazide 1 each PO DAILY #30 tablet 02/05/23 05/15/23 [Losartan-Hctz 100-12.5 mg Tab] Insulin Aspart [Novolog Flexpen] 22 unit SQ TID 04/15/23 05/15/23 Docusate Sodium 100Mg Capsule 100 mg PO DAILY 7 Days #7 cap 04/18/23 05/15/23 [Colace 100Mg Capsule] cephALEXin [Keflex] 500 mg PO TID #15 cap 05/16/23 - Allergies Allergies/Adverse Reactions: Allergies Allergy/AdvReac Type Severity Reaction Status Date / Time No Known Drug Allergies Allergy Verified 05/16/23 06:01 - Social History Does the pt smoke?: No Smoking Status: Former smoker Does the pt drink ETOH?: No Does the pt have substance abuse?: No - Immunizations Immunizations are current?: Yes - POLST Patient has POLST: No PD ED PE NORMAL - Vitals Vital signs reviewed: Yes - General General: Alert and oriented X 3, No acute distress, Well developed/nourished - Abdomen Abdomen: Soft, Other (bladder fullness with some tednerness. Marcelino in place without output.) Results - Vitals Vitals: Vital Signs - 24 hr 05/17/23 05/17/23 05/17/23 08:06 12:10 15:14 Temperature 36.1 C L Heart Rate 72 67 68 Respiratory 18 18 20 Rate Blood Pressure 135/65 H 171/89 H 154/89 H O2 Saturation 97 100 100 Oxygen O2 Source Room air - Labs Labs: Laboratory Tests 05/17/23 10:42 WBC 13.8 H RBC 3.70 L Hgb 11.1 L Hct 33.4 L MCV 90.3 MCH 30.0 MCHC 33.2 RDW 15.2 H Plt Count 194 MPV 10.0 Neut # (Auto) 9.3 H Lymph # (Auto) 2.7 [place] # (Auto) 1.3 H Eos # (Auto) 0.4 Baso # (Auto) 0.1 Absolute Nucleated RBC 0.00 Nucleated RBC % 0.0 PD Medical Decision Making - ED course Complexity details: considered differential (I pulled out clots with syringe and nursing did irrigation and syringe removal of multiple clots. Then CBI until cleared to light red tinge. ), d/w patient Departure - Departure Disposition: 01 Home, Self Care Clinical Impression: S/P TURP (status post transurethral resection of prostate), Marcelino catheter problem, Gross hematuria Condition: Stable Record reviewed to determine appropriate education?: Yes Follow-Up: Cal Frazier MD [Provider Admit Priv/Credential] - Comments: Continue with the current Marcelino catheter. Follow-up with Dr. Frazier as planned or tomorrow if he fits you in sooner. Return as needed. We did get a lot of clots out again. It does seem to be flowing well. Hopefully will continue functioning okay. It does seem to be a little bit later degree of bleeding. Forms: PCP List Discharge Date/Time: 05/17/23 15:14
[2023-05-17 10:48] LABS: BASOPHILS # (AUTO) 0.1 10^3/uL (0.0-0.1); BASOPHILS % (AUTO) 0.7 %; EOSINOPHILS # (AUTO) 0.4 10^3/uL (0.0-0.7); EOSINOPHILS % (AUTO) 2.9 %; HCT - HEMATOCRIT 33.4 % (42.0-52.0); HGB - HEMOGLOBIN 11.1 g/dL (14.0-18.0); LYMPHOCYTES # (AUTO) 2.7 10^3/uL (1.5-3.5); LYMPHOCYTES % (AUTO) 19.5 %; MEAN CORPUSCULAR HGB CONC 33.2 g/dL (32.0-36.0); MEAN CORPUSCULAR VOLUME 90.3 fL (80.0-94.0); MONOCYTES # (AUTO) 1.3 10^3/uL (0.0-1.0); MONOCYTES % (AUTO) 9.5 %; NEUTROPHILS # (AUTO) 9.3 10^3/uL (1.5-6.6); NEUTROPHILS % (AUTO) 66.9 %; PLT - PLATELET COUNT 194 10^3/uL (130-450); RED CELL DISTRIBUTION WIDTH 15.2 % (12.0-15.0); WHITE BLOOD COUNT 13.8 x10^3/uL (4.8-10.8)
[2023-05-17 13:08] VITALS: O2SAT 100
[2023-05-17 15:22] VITALS: BP 154/89
== END 2023-05-17 15:14 | disposition home or self-care (01) ==
LOC: ED 08:01
DX: T83.098A Other mechanical complication of other urinary catheter, initial encounter (principal); R31.0 Gross hematuria; I10 Essential (primary) hypertension; E78.00 Pure hypercholesterolemia, unspecified; E11.42 Type 2 diabetes mellitus with diabetic polyneuropathy; Z87.891 Personal history of nicotine dependence; Z79.4 Long term (current) use of insulin; Z79.899 Other long term (current) drug therapy
CPT/HCPCS: 36415; 51700; 85025; 99283

== ENCOUNTER 2023-05-18 08:59 | Emergency (ER) | payer MEDICARE, OTHER ==
--- NOTE | 2023-05-18 09:21 | ED Physician Documentation ---
PD HPI MALE - Stated complaint Stated Complaint: - Chief complaint Chief Complaint: General - History obtained from History obtained from: Patient - History of Present Illness Timing - onset: How many hours ago (few) Timing - details: Gradual onset (he states marcelino output regular until few hours ago. Much toxicologist coloring of blood the past day.) Associated symptoms: Marcelino problem (blocked) Review of Systems Constitutional: denies: Fever, Chills PD PAST MEDICAL HISTORY - Past Medical History Past Medical History: Yes Cardiovascular: Hypertension, High cholesterol Respiratory: None Neuro: Peripheral neuropathy Endocrine/Autoimmune: Type 2 diabetes GI: Ulcers : Other HEENT: Other Psych: None Musculoskeletal: Osteoarthritis Derm: Herpes zoster - Past Surgical History Past Surgical History: Yes General: Colonoscopy, EGD Ortho: Other HEENT: Tonsil/Adenoidectomy - Present Medications Home Medications: Ambulatory Orders Medication Instructions Recorded Confirmed Dulaglutide [Trulicity] 0.75 mg SQ Q7D 10/13/20 05/18/23 Insulin Detemir [Levemir Flextouch] 40 units SUBQ BID 10/13/20 05/18/23 Multivitamin 1 each PO DAILY 10/13/20 05/18/23 Rosuvastatin Calcium [Crestor] 40 mg PO QDBREAKFAST 10/13/20 05/18/23 Losartan/Hydrochlorothiazide 1 each PO DAILY #30 tablet 02/05/23 05/18/23 [Losartan-Hctz 100-12.5 mg Tab] Insulin Aspart [Novolog Flexpen] 22 unit SQ TID 04/15/23 05/18/23 Docusate Sodium 100Mg Capsule 100 mg PO DAILY 7 Days #7 cap 04/18/23 05/18/23 [Colace 100Mg Capsule] cephALEXin [Keflex] 500 mg PO TID #15 cap 05/16/23 05/18/23 - Allergies Allergies/Adverse Reactions: Allergies Allergy/AdvReac Type Severity Reaction Status Date / Time No Known Drug Allergies Allergy Verified 05/19/23 02:08 - Social History Does the pt smoke?: No Smoking Status: Never smoker Does the pt drink ETOH?: No Does the pt have substance abuse?: No - Immunizations Immunizations are current?: Yes - POLST Patient has POLST: No Results - Vitals Vitals: Vital Signs - 24 hr 05/18/23 05/18/23 09:12 15:03 Temperature 36.8 C 36.1 C L Heart Rate 81 67 Respiratory 18 18 Rate Blood Pressure 144/81 H 134/76 H O2 Saturation 95 98 Oxygen O2 Source Room air PD Medical Decision Making - ED course Complexity details: considered differential, d/w patient ED course: had clogging of his catheter again. He says was flowing out well until few hours ago. Myself and nursing pulled out clots from marcelino and then brisk irrigation with small aliqouts of saline and got out much more clots. Then ran irrigation. Subsequently I had nursing instill dilute peroxide and clamp for 15-20 minutes, and patient turned some side to side, and further withdrawal of clots performed with lots of clots out. Irrigation again was light pink and very clear without clots. Seems to be flowing well. Has appt with Urology tomorrow morning 9 am. Overall there is decreasing amount of bleeding apparent over the past 3 days. Departure - Departure Disposition: 01 Home, Self Care Clinical Impression: Gross hematuria, Marcelino catheter problem, S/P TURP (status post transurethral resection of prostate) Condition: Stable Follow-Up: Cal Frazier MD [Provider Admit Priv/Credential] - Comments: Continue the care of the catheter as you have been doing. Follow-up with Dr. Frazier tomorrow morning at 9 AM as scheduled. Return if needed. Forms: PCP List Discharge Date/Time: 05/18/23 15:04
[2023-05-18 15:06] VITALS: BP 134/76; O2SAT 98
== END 2023-05-18 15:04 | disposition home or self-care (01) ==
LOC: ED 08:59
DX: Z46.6 Encounter for fitting and adjustment of urinary device (principal); R31.0 Gross hematuria; I10 Essential (primary) hypertension; E78.00 Pure hypercholesterolemia, unspecified; E11.42 Type 2 diabetes mellitus with diabetic polyneuropathy; Z79.4 Long term (current) use of insulin; Z79.84 Long term (current) use of oral hypoglycemic drugs; Z79.899 Other long term (current) drug therapy
CPT/HCPCS: 51700; 99283

== ENCOUNTER 2023-05-19 01:56 | Emergency (ER) | payer MEDICARE, OTHER ==
--- NOTE | 2023-05-19 02:48 | ED Physician Documentation ---
History of Present Illness - Stated complaint Stated Complaint: MALE - Chief complaint Chief Complaint: General - History obtained from History obtained from: Patient - Additonal information Additional information: 78yM with history of TURP five days ago with several ED visits since that time for marcelino blockages presents with leakage from around the tip of the penis tonight, soaking his bed. patient states marcelino has been flowing well but he is having significant leakage. denies pain or other complaints PD PAST MEDICAL HISTORY - Past Medical History Cardiovascular: Hypertension, High cholesterol Respiratory: None Neuro: Peripheral neuropathy Endocrine/Autoimmune: Type 2 diabetes GI: Ulcers : Other HEENT: Other Psych: None Musculoskeletal: Osteoarthritis Derm: Herpes zoster - Past Surgical History Past Surgical History: Yes General: Colonoscopy, EGD Ortho: Other HEENT: Tonsil/Adenoidectomy - Present Medications Home Medications: Ambulatory Orders Medication Instructions Recorded Confirmed Dulaglutide [Trulicity] 0.75 mg SQ Q7D 10/13/20 05/18/23 Insulin Detemir [Levemir Flextouch] 40 units SUBQ BID 10/13/20 05/18/23 Multivitamin 1 each PO DAILY 10/13/20 05/18/23 Rosuvastatin Calcium [Crestor] 40 mg PO QDBREAKFAST 10/13/20 05/18/23 Losartan/Hydrochlorothiazide 1 each PO DAILY #30 tablet 02/05/23 05/18/23 [Losartan-Hctz 100-12.5 mg Tab] Insulin Aspart [Novolog Flexpen] 22 unit SQ TID 04/15/23 05/18/23 Docusate Sodium 100Mg Capsule 100 mg PO DAILY 7 Days #7 cap 04/18/23 05/18/23 [Colace 100Mg Capsule] cephALEXin [Keflex] 500 mg PO TID #15 cap 05/16/23 05/18/23 - Allergies Allergies/Adverse Reactions: Allergies Allergy/AdvReac Type Severity Reaction Status Date / Time No Known Drug Allergies Allergy Verified 05/19/23 02:08 - Social History Does the pt smoke?: No Smoking Status: Never smoker Does the pt drink ETOH?: No Does the pt have substance abuse?: No - Immunizations Immunizations are current?: Yes - POLST Patient has POLST: No PD ED PE NORMAL - Vitals Vital signs reviewed: Yes - General General: Alert and oriented X 3, No acute distress, Well developed/nourished - HEENT HEENT: Atraumatic, PERRL, EOMI - Abdomen Abdomen: Non tender, Non distended - Male Male : Other (pinkish urine visible around meatus. marcelino in place. clear, light pink fluid actively draining into bag) - Back Back: No CVA TTP - Derm Derm: Normal color, Warm and dry Results - Vitals Vitals: Vital Signs - 24 hr 05/19/23 02:04 Temperature 36.6 C Heart Rate 82 Respiratory 16 Rate Blood Pressure 150/75 H O2 Saturation 94 Oxygen O2 Source Room air PD Medical Decision Making - ED course ED course: 78yM presents to the ED with leakage of urine from the sides of the marcelino catheter. plan to change out his 18 italian for a 22 italian and have him f/u at his appointment with his urologist at 9am today. return precautions given. Departure - Departure Disposition: 01 Home, Self Care Clinical Impression: Marcelino catheter problem Condition: Good Instructions: Leg Bag Care Dc Comments: You were seen in the emergency department for marcelino catheter change. We took out the 18 italian catheter and put in a 22 italian which has bigger tubing. Please follow-up with your urologist and return to the emergency department if you have any new or worsening symptoms or other concerns. Forms: PCP List
[2023-05-19 03:32] VITALS: BP 165/66; O2SAT 95
== END 2023-05-19 03:30 | disposition home or self-care (01) ==
LOC: ED 01:56
DX: T83.038A Leakage of other urinary catheter, initial encounter (principal); I10 Essential (primary) hypertension; E78.00 Pure hypercholesterolemia, unspecified; E11.42 Type 2 diabetes mellitus with diabetic polyneuropathy; Z79.84 Long term (current) use of oral hypoglycemic drugs; Z79.4 Long term (current) use of insulin; Z79.899 Other long term (current) drug therapy
CPT/HCPCS: 51702; 99282; 99283

== ENCOUNTER 2023-05-30 06:29 | Day surgery (SDC) | payer MEDICARE, OTHER ==
[2023-05-30] MEDS ORDERED: LACTATED RINGERS 1,000 ML IV ONE ×2 (06:36→09:00)
[2023-05-30] MEDS ORDERED: ceFAZolin 2 GM VIAL ONE (06:37)
[2023-05-30] MEDS ORDERED: METOCLOPRAMIDE 10 MG/2 ML VIAL IVP PRN (06:49)
[2023-05-30] MEDS ORDERED: ATROPINE ABBOJECT 1 MG/10 ML SYRINGE IVP PRN (06:49)
[2023-05-30] MEDS ORDERED: NALOXONE 0.4 MG/ML VIAL IVP PRN (06:49)
[2023-05-30] MEDS ORDERED: fentaNYL 100 MCG/2 ML VIAL IVP PRN (06:49)
[2023-05-30] MEDS ORDERED: ePHEDrine 50 MG/ML VIAL IVP PRN (06:49)
[2023-05-30] MEDS ORDERED: ONDANSETRON 4 MG/2 ML VIAL IVP PRN (06:49)
[2023-05-30] MEDS ORDERED: HYDROmorphone 0.5 MG/0.5 ML SYRINGE IVP PRN (06:49)
[2023-05-30] MEDS ORDERED: MORPHINE 2 MG/ML CARPUJECT IVP PRN (06:49)
--- NOTE | 2023-05-30 06:49 | ANESTHESIA ---
Pre-Anesthesia VS, & Labs - Diagnosis hematuria - Procedure cysto with clot evacuation Height: 6 ft 3 in - NPO >8 hours - Lab Results Lab results reviewed: Yes Home Medications and Allergies Home Medications: Ambulatory Orders Docusate Sodium 100Mg Capsule [Colace 100Mg Capsule] 100 mg PO DAILY PRN 05/20/23 Dulaglutide [Trulicity] 0.75 mg SQ Q7D 10/13/20 Insulin Detemir [Levemir Flextouch] 40 units SUBQ BID 10/13/20 Multivitamin 1 each PO DAILY 10/13/20 Rosuvastatin Calcium [Crestor] 40 mg PO QDBREAKFAST 10/13/20 Insulin Aspart [Novolog Flexpen] 22 unit SQ TID 04/15/23 Docusate Sodium 100Mg Capsule [Colace 100Mg Capsule] 100 mg PO DAILY PRN 05/20/23 Allergies/Adverse Reactions: Allergies Allergy/AdvReac Type Severity Reaction Status Date / Time No Known Drug Allergies Allergy Verified 05/19/23 02:08 Anes History & Medical History - Anesthetic History Anesthesia Complications: reports: No previous complications Family history of Anesthesia Complications: Denies Family history of Malignant Hyperthermia: Denies - Medical History Cardiovascular: reports: Hypertension, High cholesterol Pulmonary: reports: None Gastrointestinal: reports: Ulcers Urinary: reports: Other Neuro: reports: Peripheral neuropathy Musculoskeletal: reports: Osteoarthritis Endocrine/Autoimmune: reports: Type 2 diabetes Skin: reports: Herpes zoster Smoking Status: Never smoker History of Cancer?: No - Surgical History General: reports: Colonoscopy, EGD Eyes Ears Nose Throat (EENT): reports: Tonsil/Adenoidectomy Urologic: reports: Prostatic surgery Orthopedic: reports: Other Exam General: Alert, Oriented x3, Cooperative Dental: Dentures full Upper, Dentures full Lower Mouth Opening: Greater than 4 Fingerbreadths Neck Mobility: Normal Mallampati classification: II Thyromental Distance: 4-6 cm Respiratory: Lungs clear, Normal breath sounds, No respiratory distress Cardiovascular: Regular rate Neurological: Normal speech Mental/Cognitive Status: Alert/Oriented X3, Normal for patient Plan Anesthesia Type: General Consent for Procedure(s) Verified and Reviewed: Yes Code Status: Attempt Resuscitation ASA classification: 3-Severe systemic disease Is this case an emergency?: No
[2023-05-30] MEDS ORDERED: LACTATED RINGERS 1,000 ML IV SCH (07:00)
[2023-05-30] MEDS ORDERED: LIDOCAINE 2% URO-JET 5 ML SYRINGE UR ONE (07:01)
[2023-05-30] MEDS ORDERED: iohexoL-240 10 ML VIAL IVP ONE (07:01)
[2023-05-30] MEDS ORDERED: PROPOFOL 200 MG/20 ML VIAL IVP ONE (07:11)
[2023-05-30] MEDS ORDERED: LIDOCAINE-PF 2% 10 ML AMP SUBQ ONE (07:11)
[2023-05-30] MEDS ORDERED: fentaNYL 100 MCG/2 ML VIAL ONE (07:12)
[2023-05-30] MEDS ORDERED: MIDAZOLAM 2 MG/2 ML VIAL ONE (07:12)
[2023-05-30] MEDS ORDERED: LIDOCAINE 2% URO-JET 5 ML SYRINGE IS ONE (07:40)
[2023-05-30] MEDS ORDERED: DEXAMETHASONE 4 MG/ML VIAL ONE (07:41)
[2023-05-30] MEDS ORDERED: LACTATED RINGERS 700 ML IV ONE (07:48)
[2023-05-30] MEDS ORDERED: HYDROcod/ACETAM 5/325 MG TABLET PO PRN (07:58)
--- NOTE | 2023-05-30 08:01 | Discharge Plan ---
Discharge Plan Problem Reviewed?: Yes Disposition: Home, Self Care Diet: Regular Activity Restrictions: No Restrictions Shower Restrictions: No Driving Restrictions: No No Smoking: If you smoke, Please STOP! Call for help.
--- NOTE | 2023-05-30 08:05 | OPERATIVE REPORT ---
Operative Report - General Procedure Date: 05/30/23 Planned Procedure: cystoscopy, possible clot evacuation, possible TURP Pre-Op Diagnosis: hematuria Procedure Performed: cystoscopy Post Op Diagnosis: previous TURP - Procedure Note Primary Surgeon: Freddie Anesthesia Provider: ARI Findings: Minimally fluffy build up on right lateral prostate wall Complications: none - Other Other Information/Narrative: After informed consent was obtained the patient was brought to the OR and laid the supine position. The patient was anesthetized per anesthesia protocols. His catheter was removed he was then placed in dorsal lithotomy position and prepped and draped in usual sterile fashion. A formal timeout was performed reconfirming the patient and procedure. A 22 Latvian cystoscope was advanced easily into the urinary bladder. His prostatic urethra showed no bleeding. There was no clot in the bladder. There was some slight posterior erythema of the bladder wall consistent with catheter cystitis. On the prostatic urethra on the right lateral side there was some fluffy tissue consistent with healing. Overall there was no concern and no obvious area to address. A Uro-Jet was placed and the cystoscope was removed. This concluded the procedure, patient tolerated the procedure well was brought to PACU that further incident all surgical counts were correct.
[2023-05-30 09:00] VITALS: O2SAT 93
[2023-05-30 09:40] VITALS: BP 170/82
--- NOTE | 2023-05-30 12:15 | ANESTHESIA POST OP EVALUATION ---
Anesthesia Post Eval - Post Anesthesia Eval Vitals: Last Vital Signs Temp 36.1 C L 05/30/23 09:07 Pulse 72 05/30/23 09:07 Resp 18 05/30/23 09:07 BP 170/82 H 05/30/23 09:07 Pulse Ox 93 05/30/23 09:07 O2 Flow Rate CV Function Including HR & BP: Stable Pain Control: Satisfactory Nausea & Vomiting: Negative Mental Status: Baseline Respiratory Status: Airway Patent Hydration Status: Satisfactory Anesthesia Complications: None
== END 2023-05-30 06:30 | disposition home or self-care (01) ==
LOC: SDS 06:29
PROVIDERS: ATTEND Urology
DX: R31.9 Hematuria, unspecified (principal); I10 Essential (primary) hypertension; E11.42 Type 2 diabetes mellitus with diabetic polyneuropathy; Z79.4 Long term (current) use of insulin; Z79.85 Long-term (current) use of injectable non-insulin antidiabetic drugs
CPT/HCPCS: 52000; J7120; Q9966

== ENCOUNTER 2023-06-02 08:00 | Outpatient (CLI) | payer MEDICARE, OTHER | END 2023-06-02 23:59 | disposition home or self-care (01) | LOC: LAB 08:00 | PROVIDERS: ATTEND Urology | DX: N39.0 Urinary tract infection, site not specified (principal) | CPT/HCPCS: 87077; 87086; 87181 ==